=== PATIENT | male | born 1970 | race Caucasian/White ===

== ENCOUNTER 2024-06-16 22:57 | Emergency (ER) | payer MEDICAID, SELFPAY ==
[2024-06-16 23:00] VITALS: BP 144/88; PULSE 87; RESP 18; TEMP 36.4; O2SAT 100
--- NOTE | 2024-06-16 23:15 | PD.EDAMS ---
Altered Mental Status RME/HPI General Chief Complaint: Altered Mental Status Stated Complaint: AMS Time Seen by Provider: 06/16/24 23:15 Arrival date/time: 06/16/24 22:57 Limitations: no limitations RME / HPI RME / HPI narrative: Dr. Lema's Main ED Evaluation: 54-year-old male with history of hypertension, marijuana use in the past coming in by EMS after he was seen drinking sitting on the stoop in front of the house by himself. They gave him the choice to go to alf or come to the hospital because he was drinking in public. Patient with slurred speech and smells of alcohol. Related Data Home Medications ?Medication ?Instructions ?Recorded ?Confirmed atenolol 50 mg tablet 50 mg PO QDAY 09/14/18 12/08/22 Previous Rx's ?Medication ?Instructions ?Recorded acetaminophen 650 mg 650 mg PO Q8H PRN fever or pain 09/23/21 tablet,extended release #30 tabs cyclobenzaprine 10 mg tablet 10 mg PO TID PRN muscle spasm #20 11/12/22 tabs prochlorperazine maleate 10 mg 10 mg PO BID PRN nausea and 04/20/23 tablet (Compazine) vomiting #14 tabs capsaicin 0.1 % topical cream 1 applic topical BID Abdominal 02/12/24 pain #60 grams Allergies Allergy/AdvReac Type Severity Reaction Status Date / Time ibuprofen AdvReac Severe abd pain Verified 02/12/24 15:20 Review of Systems Review of Systems ROS Unobtainable: unobtainable due to medical condition (Alcohol intoxication) Past Medical History Past Medical History NEUROLOGIC: Positive Seizures (hx aneurysm with seizure 2002); Negative Neurological Disorders CARDIAC: Positive Cardiac Disorders and Hypertension; Negative Congestive Heart Failure RESPIRATORY: Negative Chronic Obstructive Pulmonary Disease (COPD) GASTROINTESTINAL: Positive Gastrointestinal Disorders (chronic abd pain), Hepatitis (hep c), Cirrhosis, Pancreatitis (alcohol use, quit 2019) and Hiatal Hernia GENITOURINARY: Negative Genitourinary Disorders or Renal Disease MUSCULOSKELETAL: Negative Musculoskeletal Disorders ENDOCRINE: Negative Endocrine Disorders, Diabetes Mellitus Type 1 or Diabetes Mellitus Type 2 HEMATOLOGIC: Negative Blood Disorders PSYCHO/SOCIAL: Positive Recreational Drug Use (ex meth user) OTHER HISTORY: Positive Blood Transfusions; Negative Autoimmune Disease, Falls, Blood Transfusion Reaction, Anesthesia Reactions, Organ Transplant, MRSA, Clostridium Difficile or Cancer Family History FAMILY HISTORY: Positive Family Cancer Surgical History SURGICAL: Positive Cardiac Surgery, Throat Surgery, Abdominal Surgery and Neurologic Surgery; Negative Endocrine Surgery, Ear Surgery (small bowel obstruction surgery), Nephrectomy, Joint Replacement, Mastectomy, Vasectomy or Organ Transplant Social History SMOKING STATUS: Unknown if ever smoked SUBSTANCE USE: marijuana ED Exam General Limitations: Present no limitations General appearance: Present in no apparent distress and other (awake, has slurred speech, lying on the stretcher, no obvious trauma) Head Head exam: Present atraumatic Eye Eye exam: Present normal appearance, EOMI and other (Trachea is midline); Absent scleral icterus ENT ENT exam: Present normal exam, normal oropharynx, mucous membranes moist and other (no blood coming out of nose or ears) Neck Neck exam: Present normal inspection, full ROM and trachea midline Chest Chest inspection: Present normal inspection and symmetric chest wall rise Respiratory Respiratory exam: Present normal lung sounds bilaterally Cardiovascular Cardiovascular exam: Present regular rate, normal rhythm and normal heart sounds Abdominal Exam Abdominal exam: Present soft and normal bowel sounds Extremities Exam Extremities exam: Present normal inspection and full ROM Back Exam Back exam: Present normal inspection and full ROM Neurological Exam Neurological exam: Present alert, oriented X3 and CN II-XII intact Psychiatric Psychiatric exam: Present normal affect and normal mood Skin Skin exam: Present warm, dry, intact and normal color Course Course Course Narrative: 2329: Patient is attempting to crawl out of bed. Restraints ordered. 0014: Patient is being combative and aggressive towards staff. Medications ordered. OBSERVATION NOTE: The patient was placed in ED observation care at 06/17/24 at 0015 hours. The patient was placed in ED observation care because of pending metabolize to freedom. The patients past medical history, social history, and family history were reviewed. The plan of care will include serial examinations. 0515: Care signed out to Dr. Gould (emergency physician). Past medical, surgical, social and family history reviewed. Vitals and home medications reviewed. Results and treatment plan discussed. They will assume the care of the patient at this time and will follow the patient, pending metabolize to freedom. At this time, observation has ended. Quality Measures none Orders Category Date Time Status 4 HR Behavioral Restraints Q15M Care 06/16/24 23:25 Active 4 HR Behavioral Restraints Q4HR Care 06/17/24 03:[address] cervical spine wo con Stat Exams 06/17/24 00:[address] head/brain wo con Stat Exams 06/17/24 00:21 Taken Alcohol, Blood Medical Stat Lab 06/17/24 00:30 Completed Alcohol, Urine Stat Lab 06/17/24 00:01 Completed CBC Stat Lab 06/17/24 00:30 Completed CMP [Comprehensive Metabolic Panel] Stat Lab 06/17/24 00:30 Completed Drug Screen,Urine Stat Lab 06/17/24 00:01 Completed Mag [Magnesium] Stat Lab 06/17/24 00:30 Completed LORazepam [Ativan Inj] Med 06/17/24 00:22 Discontinued 1 mg IVP X1 ONE LORazepam [Ativan Inj] Med 06/17/24 01:00 Discontinued 1 mg IVP X1 ONE LORazepam [Ativan Inj] Med 06/17/24 04:25 Discontinued 2 mg IVP X1 ONE LORazepam [Ativan] Med 06/17/24 00:14 Discontinued 1 mg SL X1 ONE Vital Signs Vital signs: Vital Signs Temperature 97.6 F 06/16/24 23:00 Pulse Rate 87 06/16/24 23:00 Respiratory Rate 18 06/16/24 23:00 Blood Pressure 144/88 H 06/16/24 23:00 Pulse Oximetry (%) 100 06/16/24 23:00 Oxygen Delivery Method Room Air 06/16/24 23:00 Pulse ox is 100% on room air, which is normal according to my interpretation. Altered Mental Status Patient data External records reviewed:: [facility] previous records (Per chart review, patient was seen here on 02/12/24 for cannabis hyperemesis syndrome.) Clinical information provided by:: law enforcement Social determinants that could affect healthcare access:: alcohol use Patient has the following chronic illnesses:: cirrhosis, HTN How is presenting disease/condition affected by chronic disease/condition?: uneffected by Evaluation data The following diagnostics were reviewed and interpreted by me:: lab results and radiology exam(s) Lab and/or radiology exams considered but not ordered:: none Interpretation Summary: CBC is normal, Sodium is 146, UDS is positive for marijuana, Blood Alcohol is 296.3, according to my interpretation. ------ [employer] Preliminary Report Draft Patient: GREGG PINON [facility]. Record#: [id number] Birthdate: 1970 Age/Sex: 54 / M Location: [facility] Attending Dr: Ordering Physician: Date of Service: Procedure(s): Accession Number(s): cc: ~ CT scan of the cervical spine without intravenous contrast (axial sections with sagittal and coronal reformats) June 17, 2024 0127 hours Clinical History: 54-year-old with EtOH Comparison: None Findings: There is no fracture or subluxation. The prevertebral soft tissues are unremarkable. Impression: No evidence of fracture or subluxation. Report Electronically Signed By: Terrell Metcalf 06/17/2024 2:21:53 AM [EST] [employer] Preliminary Report Draft Patient: GREGG PINON Record#: [id number] Birthdate: 1970 Age/Sex: 54 / M Location: [facility] Attending Dr: Ordering Physician: Date of Service: Procedure(s): Accession Number(s): cc: ~ CT scan of the head without intravenous contrast (axial sections with sagittal and coronal reformats) June 17, 2024 0127 hours Clinical History: 54 yo with ETOH Comparison: None. Findings: There is no evidence of intracranial hemorrhage, mass effect or midline shift. There is mild volume loss. S/p left craniotomy. No acute fractures. Vascular clip lateral to the left of the sella. The mastoid air cells and the visualized paranasal sinuses are clear. Impression: No evidence of intracranial hemorrhage, midline shift or calvarial fracture Mild volume loss. Report Electronically Signed By: Terrell Metcalf 06/17/2024 2:26:32 AM [EST] Medications / Prescriptions Medications or Prescriptions considered but not ordered:: none Medication administrations:: Medication Administration History Discontinued Medications Lorazepam (Lorazepam 0.5 Mg Tablet) 1 mg SL X1 ONE Stop: 06/17/24 00:15 Last Admin: 06/17/24 00:24 Dose: Not Given Documented By: SHO Non-Admin Reason: Discontinued Lorazepam (Lorazepam 2 Mg/Ml Vial) 1 mg IVP X1 ONE Stop: 06/17/24 00:23 Last Admin: 06/17/24 00:26 Dose: 1 mg Documented By: SHO Lorazepam (Lorazepam 2 Mg/Ml Vial) 1 mg IVP X1 ONE Stop: 06/17/24 01:01 Last Admin: 06/17/24 01:07 Dose: 1 mg Documented By: SHO Lorazepam (Lorazepam 2 Mg/Ml Vial) 2 mg IVP X1 ONE Stop: 06/17/24 04:26 Last Admin: 06/17/24 04:28 Dose: 2 mg Documented By: SHO none Consultations Consultation(s) initiated? (list below): No Diagnosis Differential diagnosis altered mental status: alcoholic intoxication, altered mental status, hypoglycemia, hyponatremia and other (Bouts of arachnoid hemorrhage or subdural. No obvious trauma noted., Other drug use) Most likely diagnosis given after review of the tests above:: see below Admission Indicated Admission indicated?: not indicated Admission Request Was there a request for admission?: No Disposition Plan Disposition Plan: other (specify) (Signed out to Dr. Gould at 0515 pending metabolize to freedom.) Discharge Plan Plan Patient condition on transfer: Stable Prescriptions/Referrals Prescriptions/Med Rec: No Action acetaminophen 650 mg tablet extended release 650 mg PO Q8H PRN (Reason: fever or pain) Qty: 30 0RF Rx Instructions: swallow whole; do not chew/break/dissolve/open atenolol 50 mg Tablet 50 mg PO QDAY prochlorperazine maleate [Compazine] 10 mg tablet 10 mg PO BID PRN (Reason: nausea and vomiting) Qty: 14 0RF capsaicin 0.1 % cream 1 applic topical BID Qty: 60 0RF Rx Instructions: do not wash area for at least 30 min after application cyclobenzaprine 10 mg tablet 10 mg PO TID PRN (Reason: muscle spasm) Qty: 20 0RF Problem List Clinical Impression: AMS (altered mental status), Alcohol abuse Patient/Caregiver Discharge Instructions Print Language: Estonian
[2024-06-16 23:17] VITALS: PULSE 84; RESP 18; O2SAT 95
[2024-06-16 23:24] VITALS: BMI 22.3
[2024-06-16 23:55] VITALS: PULSE 74
--- NOTE | 2024-06-16 23:55 | PC.NURSE ---
Pt biba intoxicated. Per ems pt was found on the ground out in public intoxicated. pt presents combative cussing at staff and being uncooperative. pt placed in restraints per md order. placed on cardiac monitoring.
[2024-06-17] VITALS (14 sets, daily range): BP systolic 112–180; BP diastolic 74–118; PULSE 66–101; RESP 18–27; TEMP 35.9–37.1; O2SAT 95–100
--- NOTE | 2024-06-17 00:21 | XR_ITS ---
Examination: CT brain head without contrast. 2-D sagittal coronal reconstructions Date and time of exam:June 17, 2024 0127 hours Comparison March 15, 2020 INDICATIONS: Patient found down unconscious today CTDI: vol (mGy):48.9 DLP: (mGycm):922 Technique: Multiple CT axial sections of the brain have been obtained, 5 mm slice thickness. Contrast has not been administered. 2-D sagittal, coronal reconstructions have been obtained Low dose protocols were performed. One or more of the following dose reduction techniques were used; automated exposure control, adjustment of the mA and/or KV according to patient size, use of iterative reconstruction technique. Findings: No significant ventricular enlargement. Intra-axial or extra-axial hemorrhage density is not seen. No mass effect or midline shift Basal cisterns are not remarkable. Fourth ventricle is midline. Left frontal craniotomy defect Left parasellar aneurysm clip Impression: Patient motion degrades scan image quality Negative for acute hemorrhage, mass effect or midline shift
--- NOTE | 2024-06-17 00:22 | XR_ITS ---
Examination: CT cervical spine without contrast 2-D sagittal reconstructions 2-D coronal reconstructions 3-D reconstructions. Exam date and time:June 17, 2024 0127 hours INDICATIONS: Patient found down unconscious today, with head and neck pain CTDI:vol (mGy) 7.55 DLP: (mGycm) 152 Technique: Multiple 2 mm axial sections of the cervical spine have been obtained. The coronal and sagittal reconstructions have been obtained. 3-D reconstructions have been obtained. Low dose protocols were performed. One or more of the following dose reduction techniques were used; automated exposure control, adjustment of the mA and/or KV according to patient size, use of iterative reconstruction technique. Findings: Axial sections demonstrate intact base of the skull. C1 exhibit satisfactory relationship to the odontoid. No acute cervical vertebral body fracture seen. Alignment posterior spinous processes satisfactory. Impression: No acute cervical fracture.
[2024-06-17] MEDS: LORazepam 2 MG/ML VIAL 1 MG IVP ×2 (00:26→01:07)
[2024-06-17 00:28] LABS: Amphetamine/Methamp Scrn,U Negative (Negative); Barbiturate Screen,Urine Negative (Negative); Benzodiazepines Screen,Urine Positive (Negative); Benzoylecgonine Screen, Ur Negative (Negative); Fentanyl Screen,Urine Negative (Negative); Opiate Screen,Urine Positive (Negative); THC Screen,Urine Positive (Negative)
[2024-06-17 00:43] LABS: Alcohol, Urine Positive (Negative)
[2024-06-17 00:45] LABS: Basophils % (Auto) 1 % (0-2.5); Eosinophils % (Auto) 0 % (0-10); Hemoglobin 13.8 g/dL (13.5-16.0); Immature Granulocytes % (Auto) 0 % (0-0); Immature Granulocytes Auto 0.03 Thou/mm3 (0.00-0.00); Lymphocytes % (Auto) 41 % (10-50); Mean Corpuscular HGB Conc 33.7 g/dl (31.0-37.0); Mean Corpuscular Hemoglobin 29.7 pg (25.0-35.0); Mean Corpuscular Volume 88 fL (80-100); Monocytes # (Auto) 0.8 Thou/mm3 (0.0-0.8); Monocytes % (Auto) 11 % (0-12); Neutrophils # (Auto) 3.4 Thou/mm3 (1.8-7.7); Neutrophils % (Auto) 47 % (37-80); Nucleated Red Blood Cell % 0 /100 WBC (0); Platelet Count 188 Thou/mm3 (140-440); RDW Standard Deviation 45.4 fL (35.1-43.9); Red Blood Count 4.64 Miln/mm3 (4.50-5.90); White Blood Count 7.3 Thou/mm3 (3.8-10.6)
[2024-06-17 01:05] LABS: Alanine Aminotransferase 77 U/L (10-49); Albumin, Serum 5.2 gm/dL (3.5-5.0); Albumin/Globulin Ratio 1.9 (1.2-2.2); Alcohol, Blood Medical 296.3 mg/dL (0-10.0); Alkaline Phosphatase 112 U/L (46-116); Anion Gap 11 (7-16); Aspartate Amino Transferase 69 U/L (0-34); BUN/Creatinine Ratio 12 Ratio (12-20); Bilirubin,Total 0.5 mg/dL (0.3-1.2); Blood Urea Nitrogen 13 mg/dL (9-23); Calcium 10.3 mg/dL (8.3-10.6); Calcium (Corrected) 10.3 mg/dL (8.5-10.1); Carbon Dioxide 24.4 mMol/L (20.0-31.0); Chloride 111 mMol/L (98-107); Creatinine (Component) 1.1 mg/dL (0.6-1.3); Estimated Creatinine Clearance 62.5 mL/min (>60); Globulin 2.8 gm/dL (2.3-3.5); Glucose 87 mg/dL (74-106); Magnesium 2.5 mg/dL (1.6-2.6); Osmolality,Calculated 289 (275-295); Potassium 4.1 mMol/L (3.4-5.1); Sodium 146 mMol/L (136-145); eGFR > 60 See Note
--- NOTE | 2024-06-17 02:22 | PRELIM_ITS ---
CT scan of the cervical spine without intravenous contrast (axial sections with sagittal and coronal reformats) June 17, 2024 0127 hours Clinical History: 54-year-old with EtOH Comparison: NoneFindin gs:There is no fracture or subluxation. The prevertebral soft tissues are unremarkable.Impression:No evidence of fracture or subluxation. Report Electronically Signed By: Terrell Metcalf 06/17/2024 2:21 :53 AM [EST]
--- NOTE | 2024-06-17 02:26 | PRELIM_ITS ---
CT scan of the head without intravenous contrast (axial sections with sagittal and coronal reformats) June 17, 2024 0127 hoursClinical History: 54 yo with ETOHComparison: None.Findings:There is no ev idence of intracranial hemorrhage, mass effect or midline shift. There is mild volume loss. S/p left craniotomy. No acute fractures.Vascular clip lateral to the left of the sella.The mastoid air cells a nd the visualized paranasal sinuses are clear.Impression:No evidence of intracranial hemorrhage, midl ine shift or calvarial fractureMild volume loss. Report Electronically Signed By: Terrell Metcalf 2:26:32 AM [EST]
--- NOTE | 2024-06-17 04:19 | PC.NURSE ---
Pt awake, and continues to be uncooperative. Shouting, being combative, attempting to remove restraints, cussing at nursing staff. Pt thrashing around in [facility]. Pt continues to remove all vital sign monitoring. Educations reenforce as to why pt is here in the er, and why he is restrained. Pt refuses to follow directions and comply with treatment options. Md Snell informed. New verbal med orders received by .
[2024-06-17] MEDS: LORazepam 2 MG/ML VIAL IVP (04:28)
--- NOTE | 2024-06-17 08:19 | PD.EDADDENDU ---
Emergency Room Addendum <Oswaldo Gould MD - Last Filed: 06/17/24 21:14> Addendum Narrative: Patient was signed out at 05 [address] Lema who evidently was found intoxicated outside his home as ambulance team was driving by. They evaluated him and brought him here for further evaluation. Patient's charts reveal this patient's had acute pancreatitis in the past alcohol intoxication use of drugs and refer to the past medical history for more details. Today there was no evidence of any trauma or injury was just obtunded and evidently after he was here for little bit became a little more rambunctious and yelling and screaming and asking for pain medicine. Vital signs reveal hypertension white count 7.3 hemoglobin 13.8 sodium 146 potassium 4.1 chloride 111 CO2 24.4 BUN 13 creatinine 1.1 blood alcohol level was 0.296 and opiates. Transaminases are slightly elevated 69-77 a total bilirubin is 0.5. I will extend the workup as the patient has had pancreatitis before no lipase was ordered also get a CT as he is complaining of severe pain. Also patient is been quite abusive yelling cussing and threatening enough that the staff called the police who have come down and are talking to the patient as we speak. I will get the patient benefit down given some morphine. I have gone in the room several times and with the prec[place] police sergeant there explained organ to give him some pain medicine him some fluids working up further including lipase and CT of the abdomen and even while and explain his he is cussing inpatient and not waiting even here by sentences. I reassured him we would try to help him with that he would need to cooperate. Also he will note the patient has been quite combative and agitated required 4 doses of Ativan since he has been here. Now that he has not complained of abdominal pain which was not a complaint earlier medical workup for that is ordered and pending at 0840 hrs. Should be noted the CT scan came back negative other than some gastritis and at 1730 hrs. patient's walking standing eating and a third lactic acid is ordered and pending but he does not want to wait and wants to sign out AMA. Charge nurse was informed of his intentions and he fully understands the risks even though he is cussing and yelling interrupting everything I tried to explain. And this is been the way it has been for almost the whole shift with him. She be noted this patient required great patient's by the staff as he is been yelling cussing almost throughout the shift demanding pain medicine stating he never drank alcohol when he is intoxicated but the CT scan came back negative for any acute he probably has gastritis as a source of his pain and he does not have pancreatitis at least his lipase was and when told he needed to get a third lactic acid to make sure that it is going down he refused stated he wanted to sign out AMA he was ambulatory and appeared to be safe on his feet and was going to walk and not drive. Patient departed the ER and before he left he was advised to follow-up with his doctors which he promptly said a very unkind word. She noted the police were called earlier and he was abusive to them in front of me and they were called because he was threatening staff. RADIOLOGY Procedure(s): CT head/brain wo con Accession Number(s): [id number] cc: Julien Romo MD; NO PRIMARY/FAMILY,PHYSICIAN; Anay Lema MD~ Examination: CT brain head without contrast. 2-D sagittal coronal reconstructions Date and time of exam:June 17, 2024 0127 hours Comparison March 15, 2020 INDICATIONS: Patient found down unconscious today CTDI: vol (mGy):48.9 DLP: (mGycm):922 Technique: Multiple CT axial sections of the brain have been obtained, 5 mm slice thickness. Contrast has not been administered. 2-D sagittal, coronal reconstructions have been obtained Low dose protocols were performed. One or more of the following dose reduction techniques were used; automated exposure control, adjustment of the mA and/or KV according to patient size, use of iterative reconstruction technique. Findings: No significant ventricular enlargement. Intra-axial or extra-axial hemorrhage density is not seen. No mass effect or midline shift Basal cisterns are not remarkable. Fourth ventricle is midline. Left frontal craniotomy defect Left parasellar aneurysm clip Impression: Patient motion degrades scan image quality Negative for acute hemorrhage, mass effect or midline shift Dictated By: Julien Romo MD Procedure(s): CT cervical spine wo con Accession Number(s): [id number] cc: Julien Romo MD; NO PRIMARY/FAMILY,PHYSICIAN; Anay Lema MD~ Examination: CT cervical spine without contrast 2-D sagittal reconstructions 2-D coronal reconstructions 3-D reconstructions. Exam date and time:June 17, 2024 0127 hours INDICATIONS: Patient found down unconscious today, with head and neck pain CTDI:vol (mGy) 7.55 DLP: (mGycm) 152 Technique: Multiple 2 mm axial sections of the cervical spine have been obtained. The coronal and sagittal reconstructions have been obtained. 3-D reconstructions have been obtained. Low dose protocols were performed. One or more of the following dose reduction techniques were used; automated exposure control, adjustment of the mA and/or KV according to patient size, use of iterative reconstruction technique. Findings: Axial sections demonstrate intact base of the skull. C1 exhibit satisfactory relationship to the odontoid. No acute cervical vertebral body fracture seen. Alignment posterior spinous processes satisfactory. Impression: No acute cervical fracture. Dictated By: Julien Romo MD Procedure(s): CT abdomen pelvis w con Accession Number(s): [id number] cc: Oswaldo Gould MD; Julien Romo MD; NO PRIMARY/FAMILY,PHYSICIAN~ Examination: CT abdomen with intravenous contrast CT pelvis with intravenous contrast 2-D coronal reconstructions 2-D sagittal reconstructions Comparison August 10, 2023 Date and time of exam:June 17, 2024 1219 hrs. Indications: Abdominal pain this week and today, alcohol abuse history CTDI: vol (mGy) 5.4 DLP: (mGycm) 255 Technique: Multiple axial sections of the abdomen and pelvis have been obtained. 64 slice high-resolution scanner used. 3 mm axial sections have been obtained, post intravenous injection 60 cc [id number] 2-D sagittal, coronal reconstructions obtained. Low dose protocols were performed. One or more of the following dose reduction techniques were used; automated exposure control, adjustment of the mA and/or KV according to patient size, use of iterative reconstruction technique. Findings: Large retrocardiac gastric hernia Fatty liver Splenic calcifications No definite gallstones No common bile duct stones Mild dilatation pancreatic duct 4 mm No peripancreatic edema Gastric mucosa appears thickened No adrenal mass No renal or ureteral calculi Mild diffuse wall thickening and hyperemia involving the colon Normal appendix No bowel obstruction Distended urinary bladder No prostatomegaly Intact osseous structures Impression: Suspicious for gastritis No renal or ureteral calculi Nonspecific mild diffuse colitis pattern Dictated By: Julien Romo MD <Soco Guzman - Last Filed: 06/17/24 17:23> Addendum Narrative: Patient was signed out at 05 [address] Lema who evidently was found intoxicated outside his home as ambulance team was driving by. They evaluated him and brought him here for further evaluation. Patient's charts reveal this patient's had acute pancreatitis in the past alcohol intoxication use of drugs and refer to the past medical history for more details. Today there was no evidence of any trauma or injury was just obtunded and evidently after he was here for little bit became a little more rambunctious and yelling and screaming and asking for pain medicine. Vital signs reveal hypertension white count 7.3 hemoglobin 13.8 sodium 146 potassium 4.1 chloride 111 CO2 24.4 BUN 13 creatinine 1.1 blood alcohol level was 0.296 and opiates. Transaminases are slightly elevated 69-77 a total bilirubin is 0.5. I will extend the workup as the patient has had pancreatitis before no lipase was ordered also get a CT as he is complaining of severe pain. Also patient is been quite abusive yelling cussing and threatening enough that the staff called the police who have come down and are talking to the patient as we speak. I will get the patient benefit down given some morphine. I have gone in the room several times and with the prec[place] police sergeant there explained organ to give him some pain medicine him some fluids working up further including lipase and CT of the abdomen and even while and explain his he is cussing inpatient and not waiting even here by sentences. I reassured him we would try to help him with that he would need to cooperate. Also he will note the patient has been quite combative and agitated required 4 doses of Ativan since he has been here. Now that he has not complained of abdominal pain which was not a complaint earlier medical workup for that is ordered and pending at 0840 hrs. RADIOLOGY Procedure(s): CT head/brain [facility] Accession Number(s): [id number] cc: Julien Romo MD; NO PRIMARY/FAMILY,PHYSICIAN; Anay Lema MD~ Examination: CT brain head without contrast. 2-D sagittal coronal reconstructions Date and time of exam:June 17, 2024 0127 hours Comparison March 15, 2020 INDICATIONS: Patient found down unconscious today CTDI: vol (mGy):48.9 DLP: (mGycm):922 Technique: Multiple CT axial sections of the brain have been obtained, 5 mm slice thickness. Contrast has not been administered. 2-D sagittal, coronal reconstructions have been obtained Low dose protocols were performed. One or more of the following dose reduction techniques were used; automated exposure control, adjustment of the mA and/or KV according to patient size, use of iterative reconstruction technique. Findings: No significant ventricular enlargement. Intra-axial or extra-axial hemorrhage density is not seen. No mass effect or midline shift Basal cisterns are not remarkable. Fourth ventricle is midline. Left frontal craniotomy defect Left parasellar aneurysm clip Impression: Patient motion degrades scan image quality Negative for acute hemorrhage, mass effect or midline shift Dictated By: Julien Romo MD Procedure(s): CT cervical spine wo con Accession Number(s): [id number] cc: Julien Romo MD; NO PRIMARY/FAMILY,PHYSICIAN; Anay Lema MD~ Examination: CT cervical spine without contrast 2-D sagittal reconstructions 2-D coronal reconstructions 3-D reconstructions. Exam date and time:June 17, 2024 0127 hours INDICATIONS: Patient found down unconscious today, with head and neck pain CTDI:vol (mGy) 7.55 DLP: (mGycm) 152 Technique: Multiple 2 mm axial sections of the cervical spine have been obtained. The coronal and sagittal reconstructions have been obtained. 3-D reconstructions have been obtained. Low dose protocols were performed. One or more of the following dose reduction techniques were used; automated exposure control, adjustment of the mA and/or KV according to patient size, use of iterative reconstruction technique. Findings: Axial sections demonstrate intact base of the skull. C1 exhibit satisfactory relationship to the odontoid. No acute cervical vertebral body fracture seen. Alignment posterior spinous processes satisfactory. Impression: No acute cervical fracture. Dictated By: Julien Romo MD Procedure(s): CT abdomen pelvis w con Accession Number(s): [id number] cc: Oswaldo Gould MD; Julien Romo MD; NO PRIMARY/FAMILY,PHYSICIAN~ Examination: CT abdomen with intravenous contrast CT pelvis with intravenous contrast 2-D coronal reconstructions 2-D sagittal reconstructions Comparison August 10, 2023 Date and time of exam:June 17, 2024 1219 hrs. Indications: Abdominal pain this week and today, alcohol abuse history CTDI: vol (mGy) 5.4 DLP: (mGycm) 255 Technique: Multiple axial sections of the abdomen and pelvis have been obtained. 64 slice high-resolution scanner used. 3 mm axial sections have been obtained, post intravenous injection 60 cc [id number] 2-D sagittal, coronal reconstructions obtained. Low dose protocols were performed. One or more of the following dose reduction techniques were used; automated exposure control, adjustment of the mA and/or KV according to patient size, use of iterative reconstruction technique. Findings: Large retrocardiac gastric hernia Fatty liver Splenic calcifications No definite gallstones No common bile duct stones Mild dilatation pancreatic duct 4 mm No peripancreatic edema Gastric mucosa appears thickened No adrenal mass No renal or ureteral calculi Mild diffuse wall thickening and hyperemia involving the colon Normal appendix No bowel obstruction Distended urinary bladder No prostatomegaly Intact osseous structures Impression: Suspicious for gastritis No renal or ureteral calculi Nonspecific mild diffuse colitis pattern Dictated By: Julien Romo MD
--- NOTE | 2024-06-17 08:22 | PC.NURSE ---
Officer Franc and Officer Michael No from [place] [employer] here to talk to pt., pt. being belligerent and cussing. Pt. is destructive and removed his restraints. Pt. cussing at staff and Police.
[2024-06-17] MEDS: ONDANSETRON INJ 2 MG/ML INJ 2 ML 4 MG IV (11:16)
[2024-06-17] MEDS: SODIUM CHLORIDE 0.9% 1000 ML 1,000 ML 150 ML IV (11:17)
[2024-06-17 11:19] LABS: Base Excess, Venous -3 (-3-3); O2 Saturation, Venous 95 % (96-97); PCO2, Venous 28 mmHg (36-56); PO2, Venous 67 mmHg (15-58); pH, Venous 7.45 (7.33-7.66)
[2024-06-17 11:20] LABS: Lactate (Lactic Acid) 3.4 mMol/L (0.4-2.0)
[2024-06-17] MEDS: MORPHINE SULF INJ 10 MG/ML VIAL 4 MG IVP ×2 (11:22→14:05)
[2024-06-17] MEDS: SODIUM CHLORIDE 0.9% 1000 ML 1,000 ML 999 ML IV ×2 (11:23→13:19)
[2024-06-17 11:43] LABS: Lipase 40 U/L (12-53)
--- NOTE | 2024-06-17 12:34 | PC.NURSE ---
Pt. back from CT, pt.'s daughter Macey called [phone], pt. states it's ok to auto hiker her information.
--- NOTE | 2024-06-17 12:35 | PC.NURSE ---
Pt. has skin tears to left mid forearm, no bleeding or drainage noted from skin tears.
--- NOTE | 2024-06-17 13:10 | PC.NURSE ---
Pt.'s Mother is bedside.
--- NOTE | 2024-06-17 13:46 | PRELIM_ITS ---
CT scan of the abdomen and pelvis with intravenous contrast (axial sections with sagittal and coronal reformats) June 17, 2024 1219 hoursClinical History: Abdominal pain alcohol abuseComparison: No p rior study is available for comparison. Findings:The lung bases are clear.There is fatty infiltration of the liver. A calcific density is seen in the spleen, likely representing an old calcified granulo ma.The gallbladder, pancreas, kidneys and adrenals are unremarkable.No evidence of bowel obstruction. A moderate amount of fecal material is present in the colon. The appendix is within normal limits (i mages 66/122). There is no mesenteric or retroperitoneal adenopathy.The urinary bladder is unremarkab le. There is no free fluid or free air.The osseous structures are unremarkable.Impression:No evidence of bowel obstruction, free air or abscess. Report Electronically Signed By: Malena Nassar 06/17/2024 1 :45:55 PM [EST]
[2024-06-17 14:14] LABS: Reflex Lactate? Y
[2024-06-17 14:41] LABS: Lactic Acid, 3 HR 3.3 mMol/L (0.4-2.0)
--- NOTE | 2024-06-17 17:33 | PC.NURSE ---
Addendum entered by Humaira Rodriguez RN 06/17/24 17:37: 20g ivl to left forearm, dc'd with cath intact, pressure dressing applied. Original Note: Patient signed out AMA, refused Lactic acid repeat draw, patient states I'm tired of this place, I want to get the fuck out of here , risks explained to patient for leaving ER AMA, including possible , patient verbalizes understanding, Dr. Gould is aware and spoke with patient, AMA for signed and placed on chart.
== END 2024-06-17 17:38 | disposition left against medical advice (07) ==
PROVIDERS: Emergency Medicine; Emergency Provider Emergency Medicine
DX: R41.82 Altered mental status, unspecified (principal); F10.120 Alcohol abuse with intoxication, uncomplicated; I10 Essential (primary) hypertension; M54.2 Cervicalgia
CPT/HCPCS: 36415; 70450; 72125; 74177; 80053; 80307; 80320; 82803; 83605; 83690; 83735; 85025; 87040; 99285; A4649; J2060; J2270; J2405; J7030; Q9967; G0480

== ENCOUNTER 2024-08-05 11:41 | Emergency (ER) | payer MEDICAID, SELFPAY ==
[2024-08-05 12:01] VITALS: PULSE 84; RESP 20; O2SAT 99
[2024-08-05 12:20] VITALS: BP 133/93; PULSE 88; RESP 18; TEMP 36.7; O2SAT 98; BMI 20.5
--- NOTE | 2024-08-05 12:26 | PD.EDRME ---
Rapid Medical Screening Exam RME Arrival date/time: 08/05/24 11:41 This is a 54-year-old male that comes in with complaints of abdominal pain, nausea, vomiting, and and not been able to keep any food down for the past few days. Patient has a history of high blood pressure. I have greeted and performed a focused initial assessment of this patient. Initial appropriate labs ordered at this time. A comprehensive ED assessment and evaluation of the patient and analysis of all test and completion of medical decision making process will be conducted by additional ED provider. Time Seen by Provider: 08/05/24 12:18 Vital signs: Vital Signs Temperature 98.1 F 08/05/24 12:20 Pulse Rate 88 08/05/24 12:20 Respiratory Rate 18 08/05/24 12:20 Blood Pressure 133/93 H 08/05/24 12:20 Pulse Oximetry (%) 98 08/05/24 12:20 Oxygen Delivery Method Room Air 08/05/24 12:20
[2024-08-05] MEDS: ONDANSETRON ODT 4 MG TABRAP PO (12:40)
[2024-08-05 13:04] LABS: Basophils % (Auto) 0 % (0-2.5); Eosinophils % (Auto) 0 % (0-10); Hematocrit 47.2 % (41.0-53.0); Hemoglobin 16.6 g/dL (13.5-16.0); Immature Granulocytes % (Auto) 0 % (0-0); Immature Granulocytes Auto 0.05 Thou/mm3 (0.00-0.00); Lymphocytes # (Auto) 3.5 Thou/mm3 (1.0-4.8); Lymphocytes % (Auto) 22 % (10-50); Mean Corpuscular HGB Conc 35.2 g/dl (31.0-37.0); Mean Corpuscular Hemoglobin 30.4 pg (25.0-35.0); Mean Corpuscular Volume 86 fL (80-100); Monocytes # (Auto) 1.7 Thou/mm3 (0.0-0.8); Monocytes % (Auto) 11 % (0-12); Neutrophils # (Auto) 10.7 Thou/mm3 (1.8-7.7); Neutrophils % (Auto) 67 % (37-80); Nucleated Red Blood Cell % 0 /100 WBC (0); Platelet Count 192 Thou/mm3 (140-440); RDW Standard Deviation 41.2 fL (35.1-43.9); Red Blood Count 5.46 Miln/mm3 (4.50-5.90)
[2024-08-05 13:16] LABS: Alanine Aminotransferase 60 U/L (10-49); Albumin, Serum 5.5 gm/dL (3.5-5.0); Albumin/Globulin Ratio 1.6 (1.2-2.2); Alkaline Phosphatase 114 U/L (46-116); Anion Gap 9 (7-16); Aspartate Amino Transferase 65 U/L (0-34); BUN/Creatinine Ratio 29 Ratio (12-20); Bilirubin,Total 1.8 mg/dL (0.3-1.2); Blood Urea Nitrogen 44 mg/dL (9-23); Calcium 10.2 mg/dL (8.3-10.6); Calcium (Corrected) 10.2 mg/dL (8.5-10.1); Carbon Dioxide 25.9 mMol/L (20.0-31.0); Chloride 94 mMol/L (98-107); Creatinine (Component) 1.5 mg/dL (0.6-1.3); Estimated Creatinine Clearance 42.3 mL/min (>60); Globulin 3.5 gm/dL (2.3-3.5); Glucose 127 mg/dL (74-106); Lipase 45 U/L (12-53); Osmolality,Calculated 272 (275-295); Potassium 4.9 mMol/L (3.4-5.1); Sodium 129 mMol/L (136-145); eGFR 54 See Note
[2024-08-05 13:53] LABS: Collection Type, Urine Voided; Squamous Epithelial Cell,Urine 0 /hpf (0-5)
[2024-08-05 13:58] LABS: Bilirubin,Urine Negative (Negative); Blood,Urine Negative (Negative); Clarity,Urine Clear (Clear/Hazy); Color,Urine Yellow (Lt Yel-Yel); Culture Indicated,Urine Not Indicated; Glucose, Urine Negative (Negative); Hyaline Casts,Urine < 1 /hpf (0-1); Ketones,Urine Negative (Negative); Leukocyte Esterase,Urine Negative (Negative); Nitrite,Urine Negative (Negative); Protein,Urine Trace (Neg - Trace); RBC,Urine < 1 /hpf (0-3); Specific Gravity,Urine 1.026 (1.001-1.035); Urobilinogen,Urine Negative mg/dL (0.0-1.0); WBC,Urine < 1 /hpf (0-5)
[2024-08-05 14:22] LABS: Amphetamine/Methamp Scrn,U Negative (Negative); Barbiturate Screen,Urine Negative (Negative); Benzodiazepines Screen,Urine Negative (Negative); Benzoylecgonine Screen, Ur Negative (Negative); Fentanyl Screen,Urine Negative (Negative); Opiate Screen,Urine Positive (Negative); THC Screen,Urine Positive (Negative)
--- NOTE | 2024-08-05 16:21 | XR_ITS ---
Examination: Abdomen sonogram, Limited Date and time of exam: Bradycardia today at 1702 hrs. Indications: Epigastric pain nausea vomiting beginning 3 days ago Technique: Real-time carreon scale transabdominal sonographic images of the upper abdomen obtained. Findings: Gallbladder sludge, negative for cholelithiasis, negative for cholecystitis Common bile duct 0.3 cm Pancreatic head 2.6 cm Liver 12.8 cm fatty infiltration Normal hepatopedal portal venous flow Patent IVC Impression: Gallbladder sludge, negative for cholelithiasis, negative for cholecystitis
--- NOTE | 2024-08-05 16:22 | EDNOTE_ITS ---
ED Abdominal Pain RME/HPI General Chief Complaint: Abdominal Pain Stated complaint: ABDOMINAL PAIN Time seen by provider: 08/05/24 12:18 Arrival date/time: 08/05/24 11:41 RME / HPI RME / HPI narrative: 54-year-old male patient with significant history of hiatal hernia, hypertension, came in for evaluation regarding epigastric pain. Is been having epigastric pain for the last 3 to 4 days, associated with vomiting, cannot take anything down due to vomiting. Patient denies any fever. Denies any diarrhea constipation or other complaints. Patient told me that he had hiatal hernia repair done in the past. Related Data Home Medications ?Medication ?Instructions ?Recorded ?Confirmed atenolol 50 mg tablet 50 mg PO QDAY 09/14/1812/08 Previous Rx's ?Medication ?Instructions ?Recorded acetaminophen 650 mg 650 mg PO Q8H PRN fever or p ain 09/23/21 tablet,extended release #30 tabs cyclobenzaprine 10 mg tablet 10 mg PO TID PRN muscle s pasm #20 11/12/22 tabs prochlorperazine maleate 10 mg 10 mg PO BID PRN nausea and 04/20/23 tablet (Compazine) vomiting #14 tabs capsaicin 0.1 % topical cream 1 applic topical BID Abd ominal 02/12/24 pain #60 grams acetaminophen 300 mg-codeine 30 mg 1 tab PO Q8H PRN pa in #20 tabs 08/05/24 tablet atenolol 50 mg tablet 50 mg PO QDAY #30 tabs 08/05 metoclopramide HCl 10 mg tablet 10 mg PO Q6H PRN nause a and 08/05/24 (Reglan) vomiting #30 tabs pantoprazole 40 mg tablet,delayed 40 mg PO QDAY #20 ta bs 08/05/24 release (Protonix) Allergies Allergy/AdvReac Type Severity Reaction Status Date / Time ibuprofen AdvReac Severe abd pain Verified 08/05/24 12:03 Review of Systems Review of Systems Narrative Review of Systems: Review of system reviewed and within normal limits except mentioned in HPI ED Exam Narrative Physical exam: VITAL SIGNS: Reviewed. GENERAL APPEARANCE: Alert and interactive, follows commands, no acute distress, HEAD AND FACE: Non-traumatic. ENT: PERRL, pink conjunctivitis, eyelid no trauma, Mucous membrane moist. NECK: Supple, nontender, no nuchal rigidity. CHEST: No tenderness, no crepitus, no paradoxical movement, no retractions. LUNGS: Clear, well ventilated, symmetric, no rales, no wheezing, no ronchi, no stridor, good breath sounds bilaterally. HEART: Regular rate, regular rhythm, no murmur, no gallops. ABDOMEN: Soft, positive bowel sounds, nondistended, no guarding, epigastric tenderness, no rebound, no masses, RECTAL: Deferred. GENITAL: Deferred. NEUROLOGICAL: Gross motor function intact sensory function intact, Appropriate for age. MUSCULOSKELETAL: low back nontender, full range of motion. EXTREMITIES: Nontender, full range of motion. SKIN: Color pink, dry, no rash, no lacerations, no abrasions, no contusions. LYMPHATICS: Deferred. Course Quality Measures none Orders Category Date Time Status US gall bladder Stat Exams 08/05/24 16:21 Completed CBC Stat Lab 08/05/24 12:46 Completed Comprehensive Metabolic Panel Stat Lab 08/05/24 12:46 Completed Drug Screen,Urine Stat Lab 08/05/24 12:56 Completed Lipase Stat Lab 08/05/24 12:46 Completed Urinalysis, C/S if Indicated Stat Lab 08/05/24 12:55 Completed Famotidine Inj [Pepcid Inj] Med 08/05/24 16:21 Discontinued 20 mg IVP X1 ONE Metoclopramide Inj [Reglan Inj] Med 08/05/24 16:21 Discontinued 10 mg IVP X1 ONE Morphine Inj Med 08/05/24 16:21 Discontinued 4 mg IVP X1 ONE Ondansetron Odt [Zofran Odt] Med 08/05/24 12:26 Discontinued 4 mg PO X1 ONE Vital Signs Vital signs: Vital Signs Temperature 98.1 F 08/05/24 12:20 Pulse Rate 88 08/05/24 12:20 Respiratory Rate 18 08/05/24 12:20 Blood Pressure 133/93 H 08/05/24 12:20 Pulse Oximetry (%) 98 08/05/24 12:20 Oxygen Delivery Method Room Air 08/05/24 12:20 Abdominal Pain MDM MDM Narrative MDM Narrative:: 54-year-old male patient with significant history of hiatal hernia, hypertension, came in for evaluation regarding epigastric pain. Is been having epigastric pain for the last 3 to 4 days, associated with vomiting, cannot take anything down due to vomiting. Patient denies any fever. Denies any diarrhea constipation or other complaints. Patient told me that he had hiatal hernia repair done in the past. Laboratory workup is significant for leukocytosis of 16,000. LFTs is slightly elevated 1.8 total bili, AST of 65, ALT of 60. Creatinine was also noted to be 1.5 BUN 44. Ultrasound of the gallbladder showed gallbladder sludge with no sign of acute cholecystitis. Patient received famotidine IV, Reglan IV, morphine and Zofran with complete resolution of symptoms. Patient is requesting prescription for atenolol. Patient was advised to follow-up with PCP and for referral to general surgeon. Patient appears nontoxic and hemodynamically stable. Patient discharged home and instructed to follow-up with primary care provider in 24 to 48 hours. Instructed to return to the emergency department immediately if worsening of symptoms Patient data External records reviewed:: None Clinical information provided by:: patient Social determinants that could affect healthcare access:: none Patient has the following chronic illnesses:: Hypertension How is presenting disease/condition affected by chronic disease/condition?: exacerbated by Evaluation data The following diagnostics were reviewed and interpreted by me:: lab results and radiology exam(s) Lab and/or radiology exams considered but not ordered:: None Interpretation Summary: See results in [facility] Medications / Prescriptions Medications or Prescriptions considered but not ordered:: None Medication administrations:: Medication Administration History Discontinued Medications Famotidine (Famotidine Inj 10 Mg/Ml Vial 2 Ml) 20 mg IVP X1 ONE Stop: 08/05/24 16:22 Last Admin: 08/05/24 17:21 Dose: 20 mg Documented By: VG Metoclopramide HCl (Metoclopramide Inj 5 Mg/Ml Vial 2 Ml) 10 mg IVP X1 ONE; Protocol Stop: 08/05/24 16:22 Last Admin: 08/05/24 17:15 Dose: 10 mg Documented By: VG Morphine Sulfate (Morphine Sulf Inj 10 Mg/Ml Vial) 4 mg IVP X1 ONE Stop: 08/05/24 16:22 Last Admin: 08/05/24 17:18 Dose: 4 mg Documented By: VG Ondansetron HCl (Ondansetron Odt 4 Mg Tabrap) 4 mg PO X1 ONE; Protocol Stop: 08/05/24 12:27 Last Admin: 08/05/24 12:40 Dose: 4 mg Documented By: DAYANARA Zonathaly morphine Reglan vomited in with complete resolution of symptoms Consultations Consultation(s) initiated? (list below): No Diagnosis Differential diagnosis abdominal pain: abdominal pain, gastroenteritis and pancreatitis Most likely diagnosis given after review of the tests above:: Gallbladder sludge, abdominal pain Admission Indicated Admission indicated?: not indicated Admission Request Was there a request for admission?: No Disposition Plan Disposition Plan: Discharge Discharge Attestation Discharge Attestation: The patient and all family members were given an opportunity to ask questions and understood the discharge instructions. Discharge instructions specifically effects, indications for sooner follow up or return to the emergency department, and the expected course of current diagnosis. Patient condition: Stable Discharge Plan Plan Patient Disposition: HOME (Self Care) Disposition Comment: stable Prescriptions/Referrals Prescriptions/Med Rec: New atenolol 50 mg tablet 50 mg PO QDAY Qty: 30 0RF metoclopramide HCl [Reglan] 10 mg tablet 10 mg PO Q6H PRN (Reason: nausea and vomiting) Qty: 30 0RF pantoprazole [Protonix] 40 mg tablet,delayed release (DR/EC) 40 mg PO QDAY Qty: 20 0RF acetaminophen-codeine 300-30 mg tablet 1 tab PO Q8H PRN (Reason: pain) Qty: 20 0RF No Action acetaminophen 650 mg tablet extended release 650 mg PO Q8H PRN (Reason: fever or pain) Qty: 30 0RF Rx Instructions: swallow whole; do not chew/break/dissolve/open atenolol 50 mg Tablet 50 mg PO QDAY prochlorperazine maleate [Compazine] 10 mg tablet 10 mg PO BID PRN (Reason: nausea and vomiting) Qty: 14 0RF capsaicin 0.1 % cream 1 applic topical BID Qty: 60 0RF Rx Instructions: do not wash area for at least 30 min after application cyclobenzaprine 10 mg tablet 10 mg PO TID PRN (Reason: muscle spasm) Qty: 20 0RF Referrals: Papo Pulido MD [Primary Care Provider] - In 1 week Problem List Clinical Impression: Epigastric abdominal pain, Gallbladder sludge Patient/Caregiver Discharge Instructions Discharge Activity: activity as tolerated Education Materials: Treating Gallstones Additional Instructions: Thank you for the opportunity for serving you today. You are stable for discharged . You are advised to: Follow-up with your PCP in 1 to 2 days ask for referral to general surgeon Return to ED for worsening of symptoms Increase oral fluids Take medication as prescribed Print Language: Croatian Stand Alone Forms: Anne-Marie Award Info., Patient Portal Info Letter PA/SOFT WORK WRAPPER [employer]AYER AND EXAMINER Supervising Physician PA/SOFT WORK WRAPPER [employer]ER AND EXAMINER Supervising Physician: MD Cody
[2024-08-05 16:34] VITALS: BP 153/101; PULSE 79; RESP 18; TEMP 36.8; O2SAT 96
[2024-08-05] MEDS: METOCLOPRAMIDE INJ 5 MG/ML VIAL 2 ML 10 MG IVP (17:15)
[2024-08-05] MEDS: MORPHINE SULF INJ 10 MG/ML VIAL 4 MG IVP (17:18)
[2024-08-05] MEDS: FAMOTIDINE INJ 10 MG/ML VIAL 2 ML 20 MG IVP (17:21)
[2024-08-05 18:38] VITALS: BP 133/104; PULSE 122; RESP 18; TEMP 37.3; O2SAT 96
[2024-08-05 19:45] VITALS: BP 138/85; PULSE 80; RESP 18; TEMP 37.2; O2SAT 97
== END 2024-08-05 19:45 | disposition home or self-care (01) ==
PROVIDERS: Nurse Practitioner Family; Emergency Provider Family Medicine; PCP Family Medicine
DX: K82.8 Other specified diseases of gallbladder (principal); I10 Essential (primary) hypertension
CPT/HCPCS: 36415; 76705; 80053; 80307; 81001; 83690; 85025; 96374; 96375; 99284; J2270; J2765; J3490; Q0162

== ENCOUNTER 2024-09-21 15:32 | Emergency (ER) | payer MEDICAID, SELFPAY ==
[2024-09-21 15:33] VITALS: BMI 21.4
[2024-09-21 15:34] VITALS: BP 186/97; PULSE 62; RESP 19; TEMP 36.6; O2SAT 99
--- NOTE | 2024-09-21 15:45 | XR_ITS ---
Examination: Abdomen sonogram, Limited Date and time of exam: September 21, 2024 1541 hours INDICATIONS: Right upper abdominal pain with nausea vomiting beginning 2 months ago Technique: Real-time carreon scale transabdominal sonographic images of the upper abdomen obtained. Findings: Negative for gallstones Gallbladder wall 0.3 cm no edema Common bile duct 0.3 cm Pancreatic head 2.8 cm Liver 13.6 cm no focal liver lesions Normal hepatopedal portal venous O Patent IVC IMPRESSION: Normal gallbladder Normal common bile duct Normal liver
--- NOTE | 2024-09-21 15:46 | PD.EDRME ---
Rapid Medical Screening Exam [facility] Arrival date/time: 09/21/24 15:32 54-year-old male with no known medical history presents to the emergency room with a chief complaint of right upper quadrant abdominal pain and tenderness, nausea, vomiting x 2 days. I have greeted and performed a focused initial assessment of this patient. A comprehensive ED assessment and evaluation of the patient, analysis of all test results, and completion of the medical decision making process will be conducted by additional ED providers. Chief Complaint: Abdominal Pain Vital signs: Vital Signs Temperature 97.8 F 09/21/24 15:34 Pulse Rate 62 09/21/24 15:34 Respiratory Rate 19 09/21/24 15:34 Blood Pressure 186/97 H 09/21/24 15:34 Pulse Oximetry (%) 99 09/21/24 15:34 Oxygen Delivery Method Room Air 09/21/24 15:34 Vital signs reviewed by provider: Yes
[2024-09-21 16:43] LABS: Basophils % (Auto) 0 % (0-2.5); Eosinophils % (Auto) 0 % (0-10); Hematocrit 42.5 % (41.0-53.0); Hemoglobin 14.5 g/dL (13.5-16.0); Immature Granulocytes % (Auto) 0 % (0-0); Immature Granulocytes Auto 0.03 Thou/mm3 (0.00-0.00); Lymphocytes # (Auto) 1.2 Thou/mm3 (1.0-4.8); Lymphocytes % (Auto) 14 % (10-50); Mean Corpuscular HGB Conc 34.1 g/dl (31.0-37.0); Mean Corpuscular Volume 91 fL (80-100); Monocytes # (Auto) 0.2 Thou/mm3 (0.0-0.8); Monocytes % (Auto) 2 % (0-12); Neutrophils # (Auto) 6.8 Thou/mm3 (1.8-7.7); Neutrophils % (Auto) 83 % (37-80); Nucleated Red Blood Cell % 0 /100 WBC (0); Platelet Count 225 Thou/mm3 (140-440); RDW Standard Deviation 45.6 fL (35.1-43.9); Red Blood Count 4.67 Miln/mm3 (4.50-5.90); White Blood Count 8.3 Thou/mm3 (3.8-10.6)
[2024-09-21] MEDS: HYDROcodone/APAP 5/325 TABLET 1 TAB PO (16:56)
[2024-09-21] MEDS: ONDANSETRON ODT 4 MG TABRAP PO (16:56)
[2024-09-21 17:40] LABS: Alanine Aminotransferase 152 U/L (10-49); Albumin, Serum 5.2 gm/dL (3.5-5.0); Albumin/Globulin Ratio 1.6 (1.2-2.2); Alkaline Phosphatase 124 U/L (46-116); Anion Gap 12 (7-16); Aspartate Amino Transferase 68 U/L (0-34); BUN/Creatinine Ratio 16 Ratio (12-20); Bilirubin,Total 0.7 mg/dL (0.3-1.2); Blood Urea Nitrogen 23 mg/dL (9-23); Calcium 10.5 mg/dL (8.3-10.6); Calcium (Corrected) 10.5 mg/dL (8.5-10.1); Carbon Dioxide 23.1 mMol/L (20.0-31.0); Chloride 106 mMol/L (98-107); Creatinine (Component) 1.4 mg/dL (0.6-1.3); Estimated Creatinine Clearance 47.2 mL/min (>60); Globulin 3.3 gm/dL (2.3-3.5); Glucose 201 mg/dL (74-106); Lipase 38 U/L (12-53); Osmolality,Calculated 290 (275-295); Potassium 4.4 mMol/L (3.4-5.1); Sodium 141 mMol/L (136-145); Total Protein 8.5 gm/dL (5.7-8.2); eGFR 59 See Note
[2024-09-21 17:55] LABS: Collection Type, Urine Clean Catch; Squamous Epithelial Cell,Urine 0 /hpf (0-5); WBC,Urine 0 /hpf (0-5)
[2024-09-21 18:07] LABS: Amorphous Crystals,Urine Present (Absent); Bilirubin,Urine Negative (Negative); Blood,Urine Negative (Negative); Color,Urine Drk-Yellow (Lt Yel-Yel); Glucose, Urine Negative (Negative); Hyaline Casts,Urine 1 /hpf (0-1); Ketones,Urine Trace (Negative); Leukocyte Esterase,Urine Negative (Negative); Nitrite,Urine Negative (Negative); Protein,Urine 1+ (Neg - Trace); RBC,Urine 17 /hpf (0-3); Renal Epithelial Cells,Urine 129 /hpf (0-5); Specific Gravity,Urine 1.039 (1.001-1.035)
[2024-09-21 18:11] LABS: Clarity,Urine Turbid (Clear/Hazy)
--- NOTE | 2024-09-21 19:04 | EDNOTE_ITS ---
<Statement entered by Smita Okeefe MD - 09/22/24 05:25> As co-signing physician, I was present and available for consult prn. I concur with the plan and care as documented by the midlevel provider. ED Abdominal Pain RME/HPI General Chief Complaint: Abdominal Pain Stated complaint: ABDOMINAL PAIN Time seen by provider: 09/21/24 18:44 Arrival date/time: 09/21/24 15:32 RME / HPI RME / HPI narrative: 54-year-old male with no known medical history presents to the emergency room with a chief complaint of right upper quadrant abdominal pain and tenderness, nausea, vomiting x 2 days. Described as dull ache, severity moderate. Patient denies any fever denies any other complaints no medications taken prior to arrival. Patient admits of smoking marijuana on a regular basis. Related Data Home Medications ?Medication ?Instructions ?Recorded ?Confirmed atenolol 50 mg tablet 50 mg PO QDAY 09/14/1812/08 Previous Rx's ?Medication ?Instructions ?Recorded acetaminophen 650 mg 650 mg PO Q8H PRN fever or p ain 09/23/21 tablet,extended release #30 tabs cyclobenzaprine 10 mg tablet 10 mg PO TID PRN muscle s pasm #20 11/12/22 tabs prochlorperazine maleate 10 mg 10 mg PO BID PRN nausea and 04/20/23 tablet (Compazine) vomiting #14 tabs capsaicin 0.1 % topical cream 1 applic topical BID Abd ominal 02/12/24 pain #60 grams acetaminophen 300 mg-codeine 30 mg 1 tab PO Q8H PRN pa in #20 tabs 08/05/24 tablet atenolol 50 mg tablet 50 mg PO QDAY #30 tabs 08/05 metoclopramide HCl 10 mg tablet 10 mg PO Q6H PRN nause a and 08/05/24 (Reglan) vomiting #30 tabs pantoprazole 40 mg tablet,delayed 40 mg PO QDAY #20 ta bs 08/05/24 release (Protonix) acetaminophen 300 mg-codeine 30 mg 1 tab PO Q8H PRN pa in #20 tabs 09/21/24 tablet dicyclomine 20 mg tablet 20 mg PO QID PRN abdominal p ain 09/21/24 #20 tabs pantoprazole 40 mg tablet,delayed 40 mg PO QAM #14 tab s 09/21/24 release (Protonix) Allergies Allergy/AdvReac Type Severity Reaction Status Date / Time ibuprofen AdvReac Severe abd pain Verified 08/05/24 12:03 Review of Systems Review of Systems Narrative Review of Systems: Review of system reviewed and within normal limits except mentioned in HPI ED Exam Narrative Physical exam: VITAL SIGNS: Reviewed. GENERAL APPEARANCE: Alert and interactive, follows commands, no acute distress, HEAD AND FACE: Non-traumatic. ENT: PERRL, pink conjunctivitis, eyelid no trauma, Mucous membrane moist. NECK: Supple, nontender, no nuchal rigidity. CHEST: No tenderness, no crepitus, no paradoxical movement, no retractions. LUNGS: Clear, well ventilated, symmetric, no rales, no wheezing, no ronchi, no stridor, good breath sounds bilaterally. HEART: Regular rate, regular rhythm, no murmur, no gallops. ABDOMEN: Soft, positive bowel sounds, nondistended, no guarding, epigastric tenderness, no rebound, no masses, RECTAL: Deferred. GENITAL: Deferred. NEUROLOGICAL: Gross motor function intact sensory function intact, Appropriate for age. MUSCULOSKELETAL: low back nontender, full range of motion. EXTREMITIES: Nontender, full range of motion. SKIN: Color pink, dry, no rash, no lacerations, no abrasions, no contusions. LYMPHATICS: Deferred. Course Quality Measures none Orders Category Date Time Status US gall bladder Stat Exams 09/21/24 15:45 Completed CBC Stat Lab 09/21/24 16:31 Completed CMP [Comprehensive Metabolic Panel] Stat Lab 09/21/24 17:13 Completed Lipase Stat Lab 09/21/24 17:13 Completed UA [Urinalysis] Stat Lab 09/21/24 17:47 Completed Urine Culture Stat Lab 09/21/24 17:47 Received Dicyclomine [Bentyl] Med 09/21/24 19:03 Discontinued 20 mg PO X1 ONE Famotidine [Pepcid] Med 09/21/24 19:03 Discontinued 40 mg PO X1 ONE HYDROcodone*/APAP 5/325 [[place] 5/325] Med 09/21/24 15:45 Discontinued 1 tab PO X1 ONE HYDROcodone/APAP 10/325 [[place] 10/325] Med 09/21/24 19:03 Discontinued 1 tab PO X1 ONE Ondansetron Odt [Zofran Odt] Med 09/21/24 15:45 Discontinued 4 mg PO X1 ONE Vital Signs Vital signs: Vital Signs Temperature 97.8 F 09/21/24 15:34 Pulse Rate 62 09/21/24 15:34 Respiratory Rate 19 09/21/24 15:34 Blood Pressure 186/97 H 09/21/24 15:34 Pulse Oximetry (%) 99 09/21/24 15:34 Oxygen Delivery Method Room Air 09/21/24 15:34 Abdominal Pain MDM [facility] Narrative [facility] Narrative:: 54-year-old male with no known medical history presents to the emergency room with a chief complaint of right upper quadrant abdominal pain and tenderness, nausea, vomiting x 2 days. Described as dull ache, severity moderate. Patient denies any fever denies any other complaints no medications taken prior to arrival. Patient admits of smoking marijuana on a regular basis. Patient's workup today all came back unremarkable lipase is normal ultrasound of the gallbladder came back unremarkable. Patient received [place], Pepcid, Bentyl, no significant improvement of symptoms Patient data External records reviewed:: None Clinical information provided by:: patient Social determinants that could affect healthcare access:: none Patient has the following chronic illnesses:: Marijuana abuse How is presenting disease/condition affected by chronic disease/condition?: exacerbated by Evaluation data The following diagnostics were reviewed and interpreted by me:: lab results and radiology exam(s) Lab and/or radiology exams considered but not ordered:: None Interpretation Summary: See results in MDM Medications / Prescriptions Medications or Prescriptions considered but not ordered:: None Medication administrations:: Medication Administration History Discontinued Medications Hydrocodone Bitart/Acetaminophen (Hydrocodone/Apap 5/325 Tablet) 1 tab PO X1 ONE Stop: 09/21/24 15:46 Last Admin: 09/21/24 16:56 Dose: 1 tab Documented By: DO Hydrocodone Bitart/Acetaminophen (Hydrocodone/Apap 10/325 Tab) 1 tab PO X1 ONE Stop: 09/21/24 19:04 Dicyclomine HCl (Dicyclomine 10 Mg Capsule) 20 mg PO X1 ONE Stop: 09/21/24 19:04 Famotidine (Famotidine 20 Mg Tablet) 40 mg PO X1 ONE Stop: 09/21/24 19:04 Ondansetron HCl (Ondansetron Odt 4 Mg Tabrap) 4 mg PO X1 ONE; Protocol Stop: 09/21/24 15:46 Last Admin: 09/21/24 16:56 Dose: 4 mg Documented By: DO Charlie Rivera Bentyl, Norco Consultations Consultation(s) initiated? (list below): No Diagnosis Differential diagnosis abdominal pain: abdominal pain and pancreatitis Most likely diagnosis given after review of the tests above:: Epigastric abdominal pain Admission Indicated Admission indicated?: not indicated Admission Request Was there a request for admission?: No Disposition Plan Disposition Plan: Discharge Discharge Attestation Discharge Attestation: The patient was given an opportunity to ask questions and understood the discharge instructions. Discharge instructions specifically effects, indications for sooner follow up or return to the emergency department, and the expected course of current diagnosis. Patient condition: Stable Discharge Plan Plan Patient Disposition: HOME (Self Care) Discharge Disposition comment: stable Prescriptions/Referrals Prescriptions/Med Rec: New acetaminophen-codeine 300-30 mg tablet 1 tab PO Q8H PRN (Reason: pain) Qty: 20 0RF pantoprazole [Protonix] 40 mg tablet,delayed release (DR/EC) 40 mg PO QAM Qty: 14 0RF dicyclomine 20 mg tablet 20 mg PO QID PRN (Reason: abdominal pain) Qty: 20 0RF No Action acetaminophen 650 mg tablet extended release 650 mg PO Q8H PRN (Reason: fever or pain) Qty: 30 0RF Rx Instructions: swallow whole; do not chew/break/dissolve/open atenolol 50 mg Tablet 50 mg PO QDAY prochlorperazine maleate [Compazine] 10 mg tablet 10 mg PO BID PRN (Reason: nausea and vomiting) Qty: 14 0RF capsaicin 0.1 % cream 1 applic topical BID Qty: 60 0RF Rx Instructions: do not wash area for at least 30 min after application atenolol 50 mg tablet 50 mg PO QDAY Qty: 30 0RF metoclopramide HCl [Reglan] 10 mg tablet 10 mg PO Q6H PRN (Reason: nausea and vomiting) Qty: 30 0RF pantoprazole [Protonix] 40 mg tablet,delayed release (DR/EC) 40 mg PO QDAY Qty: 20 0RF acetaminophen-codeine 300-30 mg tablet 1 tab PO Q8H PRN (Reason: pain) Qty: 20 0RF cyclobenzaprine 10 mg tablet 10 mg PO TID PRN (Reason: muscle spasm) Qty: 20 0RF Referrals: No Primary/Family,Physician [Primary Care Provider] - In 1 week Problem List Clinical Impression: Epigastric abdominal pain Patient/Caregiver Discharge Instructions Discharge Activity: activity as tolerated Education Materials: ED Epigastric Pain (Uncertain Cause) Additional Instructions: Thank you for the opportunity for serving you today. You are stable for discharged . You are advised to: Follow-up with your PCP in 1 to 2 days Return to ED for worsening of symptoms Increase oral fluids Print Language: Barbadian Stand Alone Forms: Anne-Marie Award Info., Patient Portal Info Letter PA/BRAEDEN Supervising Physician PA/BRAEDEN Supervising Physician: MD Rony
[2024-09-21] MEDS: FAMOTIDINE 20 MG TABLET 40 MG PO (19:22)
[2024-09-21] MEDS: DICYCLOMINE 10 MG CAPSULE 20 MG PO (19:22)
[2024-09-21] MEDS: HYDROcodone/APAP 10/325 TAB PO (19:22)
== END 2024-09-21 19:26 | disposition home or self-care (01) ==
PROVIDERS: Nurse Practitioner Family; Emergency Provider Emergency Medicine
DX: R10.13 Epigastric pain (principal); R11.2 Nausea with vomiting, unspecified; R10.11 Right upper quadrant pain
CPT/HCPCS: 36415; 76705; 80053; 81001; 83690; 85025; 87086; 99284; Q0162; A9270

== ENCOUNTER 2024-09-26 10:45 | Day surgery (SDC) | payer MEDICAID, SELFPAY ==
--- NOTE | 2024-09-22 06:28 | EKG_ITS ---
[facility] Test Date: 2024-09-22 Pat Name: GREGG PINON Department: Room: - Gender: Male Remote Sensing Technician: ESTEFANI : 1970 Requested By: Mariah Rivas Order Number: [id number] Reading MD: Mariah Rivas Measurements Intervals [place] Rate: 55 P: 48 VA: 142 QRS: 27 QRSD: 89 T: 47 QT: 394 QTc: 379 Interpretive Statements SINUS BRADYCARDIA POSSIBLE LEFT ATRIAL ENLARGEMENT [-0.1mV P WAVE IN V1/V2] SEPTAL MYOCARDIAL INFARCTION , OF INDETERMINATE AGE [40+ ms Q WAVE IN V1/V2] Compared to ECG 11/12/2022 10:40:49 Myocardial infarct finding now present Sinus rhythm no longer present /store/S0/[id number]/[id number].pdf
[2024-09-22 09:26] VITALS: BMI 21.4
--- NOTE | 2024-09-25 14:28 | SUR.PREOP ---
History of aneurysm reviewed with Dr Koch, pt does not follow up with nuerologist.
--- NOTE | 2024-09-25 15:06 | SUR.PREOP ---
Pt notified to come in at 1130 tomorrow for surgery.
[2024-09-26] VITALS (13 sets, daily range): BP systolic 124–201; BP diastolic 85–123; PULSE 56–78; RESP 12–19; TEMP 36.2–36.8; O2SAT 97–100; BMI 22.1
[2024-09-26] MEDS: RINGERS LACTATED 1000 ML 1,000 ML 20 ML IV (11:38)
--- NOTE | 2024-09-26 14:16 | SUR.PHASEI ---
pt received from OR in recovery bay 7. pt obtunded, breathing unlabored on oxymask 6l, oral airway in place. v/s stable. pt dressing to abd dermabond x4 cdi. report received from Miki ÁLVAREZ and Dr. Ballesteros.
--- NOTE | 2024-09-26 14:19 | PD.SUROPNT ---
Date of Procedure 09/26/24 Pre Op Diagnosis Symptomatic cholelithiasis Post Op Diagnosis Cholelithiasis with cholecystitis Cirrhosis of the liver without ascites Procedure Laparoscopic cholecystectomy Findings Very distended gallbladder with multiple small gallstones and chronic cholecystitis. Patient was noted to have mild nodularities throughout the surface of the liver suspicious for mild cirrhosis. No evidence of ascites. Procedure Description Patient was brought into the operating room in supine position. After administration of general endotracheal anesthesia abdomen was prepped and draped in standard surgical manner. A Veress needle was inserted through the umbilicus and pneumoperitoneum was obtained up to 15 mmHg. The Veress needle was then removed, a 5 mm infraumbilical incision was made and the 5mm trocar was inserted. Laparoscopic camera was placed. Under direct visualization a laparoscopic camera a 10 mm trocar was placed in subxiphoid and two 5 mm trocars placed in right upper quadrant. The anterior surface of the liver had mild nodularity suspicious for mild cirrhosis of the liver. There was no evidence of ascites. The gallbladder was identified and was noted to be very distended with multiple small gallstones. The gallbladder was decompressed with an aspirator. It was retracted cephalad and laterally. Dissection started near the infundibulum of gallbladder where cystic duct and gallbladder junction clearly identified. The cystic duct was circumferentially dissected off the peritoneum and surrounding inflammatory tissue. The critical view of safety was clearly demonstrated. Cystic duct was then divided between 2 endoclips proximally and one distally. The cystic artery was similarly dissected and divided. The gallbladder was then from the liver bed using electrocautery. The gallbladder was then placed inside an Endo Catch and removed from the abdomen utilizing subxiphoid trocar site. The area was copiously and thoroughly washed and irrigated, all the fluid was suctioned and the suction fluid returned clear. Hemostasis achieved using electrocautery. Endoclips noted be in place and intact without any bleeding or any leakage. Hemostasis was adequate and satisfactory. The subxiphoid trocar sites fascial defect was closed with 0 Vicryl. Instruments and trocars removed, pneumoperitoneum was evacuated and the incisions closed with 4-0 Monocryl in subcuticular fashion. Instrument needle and sponge counts were all reported to be correct X2. Patient tolerated the procedure well, was extubated, breathing spontaneously and without difficulty and was transferred to postanesthesia care in stable condition. Anesthesia GETA and local Pathology / specimen Other (Gallbladder and contents) Estimated Blood Loss 10 Condition Stable Disposition PACU Surgeon Mariah Rivas MD Surgical Staff Operation Date: 09/26/24 13:30 Case Staff Anesthesiologist: Jude Ballesteros RN First Assistant: Agnes Ramesh
[2024-09-26] MEDS: ONDANSETRON INJ 2 MG/ML INJ 2 ML 4 MG IV (14:27)
[2024-09-26] MEDS: HYDROmorphone INJ 2 MG/ML VIAL 0.4 MG IVP (14:29)
[2024-09-26] MEDS: ACETAMINOPHEN IVPB 1,000 MG/100 ML VIAL 250 MG IV (14:30)
[2024-09-26] MEDS: MORPHINE SULF INJ 10 MG/ML VIAL 3 MG IVP ×2 (14:42→15:36)
[2024-09-26] MEDS: hydrALAZINE INJ 20 MG/ML VIAL 10 MG IV ×2 (14:50→15:55)
[2024-09-26] MEDS: METOCLOPRAMIDE INJ 5 MG/ML VIAL 2 ML 10 MG IV (15:00)
--- NOTE | 2024-09-26 15:04 | SUR.PHASEII ---
pt able to tolerate oral fluids without difficulty swallowing or nausea/vomiting.
[2024-09-26] MEDS: DEXAMETHASONE SOD PHOS INJ 4 MG/ML VIAL 10 MG IVP (15:23)
--- NOTE | 2024-09-26 15:45 | SUR.PHASEII ---
After giving Morphine pts arm developed a rash, informed anaesthesia provider Dr. Ballesteros, new orders received.
[2024-09-26] MEDS: DiphenhydrAMINE INJ 50 MG/ML VIAL 25 MG IVP (15:53)
--- NOTE | 2024-09-26 16:15 | SUR.PHASEII ---
After IV Benadryl pts arm rash resolved. Dr. Ballesteros inspected pts arm stated it was possible pt had a sensitivity to second dose of Morphine not a true allergy.
--- NOTE | 2024-09-26 16:20 | SUR.PHASEII ---
pt awake and alert, breathing unlabored on room air. v/s stable. pt dressing to abd dermabond x4 cdi. d/c instructions given with mother Kaylie in room, all questions answered. pt d/c via wheelchair with all belongings.
== END 2024-09-26 16:20 | disposition home or self-care (01) ==
PROVIDERS: PCP Family Medicine; Referring Provider Surgery; Visit Provider Surgery
PROC: 0FT44ZZ Resection of Gallbladder, Percutaneous Endoscopic Approach (ICD-10-PCS; CPT 47562; principal; 2024-09-26 13:15)
DX: K80.10 Calculus of gallbladder with chronic cholecystitis without obstruction (principal); K74.60 Unspecified cirrhosis of liver; F41.9 Anxiety disorder, unspecified; F32.A Depression, unspecified; F17.210 Nicotine dependence, cigarettes, uncomplicated; Z01.810 Encounter for preprocedural cardiovascular examination; Z79.899 Other long term (current) drug therapy
CPT/HCPCS: 47562; 93005; A4217; A4649; J0131; J0360; J0694; J1100; J1171; J1200; J2250; J2270; J2405; J2704; J2765; J3010; J3490; J7120

== ENCOUNTER 2024-11-16 15:00 | Emergency (ER) | payer MEDICAID, SELFPAY ==
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
[2024-11-16 15:37] VITALS: BP 145/91; PULSE 105; RESP 18; TEMP 37.1; O2SAT 95
[2024-11-16 15:38] VITALS: BMI 26.4
[2024-11-16 16:39] LABS: Basophils % (Auto) 0 % (0-2.5); Eosinophils % (Auto) 0 % (0-10); Hematocrit 41.3 % (41.0-53.0); Hemoglobin 14.6 g/dL (13.5-16.0); Immature Granulocytes % (Auto) 0 % (0-0); Immature Granulocytes Auto 0.01 Thou/mm3 (0.00-0.00); Lymphocytes # (Auto) 3.2 Thou/mm3 (1.0-4.8); Lymphocytes % (Auto) 47 % (10-50); Mean Corpuscular HGB Conc 35.4 g/dl (31.0-37.0); Mean Corpuscular Hemoglobin 30.6 pg (25.0-35.0); Mean Corpuscular Volume 87 fL (80-100); Monocytes # (Auto) 0.4 Thou/mm3 (0.0-0.8); Monocytes % (Auto) 6 % (0-12); Neutrophils # (Auto) 3.1 Thou/mm3 (1.8-7.7); Neutrophils % (Auto) 47 % (37-80); Nucleated Red Blood Cell % 0 /100 WBC (0); Platelet Count 191 Thou/mm3 (140-440); RDW Standard Deviation 42.5 fL (35.1-43.9); Red Blood Count 4.77 Miln/mm3 (4.50-5.90); White Blood Count 6.7 Thou/mm3 (3.8-10.6)
[2024-11-16] MEDS: SODIUM CHLORIDE 0.9% 1000 ML 1,000 ML 999 ML IV (16:54)
[2024-11-16 17:11] LABS: Collection Type, Urine Clean Catch
[2024-11-16 17:16] LABS: Alanine Aminotransferase 139 U/L (10-49); Albumin, Serum 4.7 gm/dL (3.5-5.0); Albumin/Globulin Ratio 1.7 (1.2-2.2); Alkaline Phosphatase 154 U/L (46-116); Anion Gap 11 (7-16); Aspartate Amino Transferase 218 U/L (0-34); BUN/Creatinine Ratio 13 Ratio (12-20); Bilirubin,Total 0.6 mg/dL (0.3-1.2); Blood Urea Nitrogen 14 mg/dL (9-23); Calcium 9.3 mg/dL (8.3-10.6); Calcium (Corrected) 9.3 mg/dL (8.5-10.1); Carbon Dioxide 23.7 mMol/L (20.0-31.0); Chloride 110 mMol/L (98-107); Creatinine (Component) 1.1 mg/dL (0.6-1.3); Estimated Creatinine Clearance 60.2 mL/min (>60); Globulin 2.7 gm/dL (2.3-3.5); Glucose 84 mg/dL (74-106); Magnesium 2.4 mg/dL (1.6-2.6); Osmolality,Calculated 288 (275-295); Potassium 4.2 mMol/L (3.4-5.1); Sodium 145 mMol/L (136-145); Total Protein 7.4 gm/dL (5.7-8.2); eGFR > 60 See Note
[2024-11-16 17:16] LABS: Bacteria,Urine Rare; Bilirubin,Urine Negative (Negative); Blood,Urine Negative (Negative); Clarity,Urine Clear (Clear/Hazy); Color,Urine Lt-Yellow (Lt Yel-Yel); Culture Indicated,Urine Not Indicated; Glucose, Urine Negative (Negative); Ketones,Urine Trace (Negative); Leukocyte Esterase,Urine Negative (Negative); Nitrite,Urine Negative (Negative); Protein,Urine Negative (Neg - Trace); RBC,Urine 1 /hpf (0-3); Squamous Epithelial Cell,Urine < 1 /hpf (0-5); Urobilinogen,Urine Negative mg/dL (0.0-1.0); WBC,Urine 1 /hpf (0-5)
[2024-11-16 17:29] LABS: Amphetamine/Methamp Scrn,U Negative (Negative); Barbiturate Screen,Urine Negative (Negative); Benzodiazepines Screen,Urine Negative (Negative); Benzoylecgonine Screen, Ur Negative (Negative); Fentanyl Screen,Urine Negative (Negative); Opiate Screen,Urine Positive (Negative); THC Screen,Urine Positive (Negative)
--- NOTE | 2024-11-16 17:30 | PC.NURSE ---
PT KEEPS YELLING AT NURSES IN ROOM 11, CUSSING AND YELLING WHERE'S THE DOCTOR? PT ASKED NICELY NOT TO YELL AND INFORMED THAT NURSE WILL TALK WITH THE PROVIDOER SOON POSSIBLE
[2024-11-16 17:31] LABS: Alcohol, Blood Medical 423.4 mg/dL (0-10.0)
[2024-11-16 17:39] VITALS: BP 148/100; PULSE 74; RESP 19; TEMP 36.6; O2SAT 97
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
== END 2024-11-16 18:00 | disposition left against medical advice (07) ==
PROVIDERS: Nurse Practitioner Family; Emergency Provider Emergency Medicine
DX: F10.129 Alcohol abuse with intoxication, unspecified (principal); M79.631 Pain in right forearm; Y90.9 Presence of alcohol in blood, level not specified
CPT/HCPCS: 36415; 73090; 80053; 80307; 80320; 81001; 83735; 85025; 99284; J7030; G0480

== ENCOUNTER 2025-01-12 10:17 | Emergency (ER) | payer MEDICAID, SELFPAY ==
[2025-01-12 10:19] VITALS: BP 136/94; PULSE 87; RESP 17; TEMP 36.8; O2SAT 97; BMI 22.3
--- NOTE | 2025-01-12 10:23 | EKG_ITS ---
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
[2025-01-12 10:28] VITALS: O2SAT 95
--- NOTE | 2025-01-12 11:21 | XR_ITS ---
Examination: CT abdomen with intravenous contrast CT pelvis with intravenous contrast 2-D coronal reconstructions 2-D sagittal reconstructions Date and time of exam:January 12, 2025, 1754 hours, comparison June 17, 2024. INDICATIONS: Mid abdominal pain 3 days, history hernia abdominal aortic aneurysm CTDI: vol (mGy) 5.53. DLP: (mGycm) 309 Technique: Multiple axial sections of the abdomen and pelvis have been obtained. 64 slice high-resolution scanner used. 3 mm axial sections have been obtained, post intravenous injection 30 cc [id number]-300 intravenous 2-D sagittal, coronal reconstructions obtained. Low dose protocols were performed. One or more of the following dose reduction techniques were used; automated exposure control, adjustment of the mA and/or KV according to patient size, use of iterative reconstruction technique. Findings: Large retrocardiac gastric hernia No focal liver lesions. Absent gallbladder. Splenic calcifications. No pancreatic or adrenal mass. No renal or ureteral calculi, no hydronephrosis Normal appendix. 8 mm fat-containing umbilical hernia Colonic diverticulosis. No diverticulitis. Absent uterus. Contracted urinary bladder. Advanced degenerative disc disease L5-S1. IMPRESSION: Large retrocardiac gastric hernia. Absent gallbladder. No common bile duct stones or extrahepatic biliary ductal dilatation. No renal or ureteral calculi. Normal appendix Tiny fat-containing umbilical hernia. Colonic diverticulosis, no diverticulitis No bowel obstruction No abdominal aortic aneurysm
--- NOTE | 2025-01-12 11:22 | PD.EDRME ---
Rapid Medical Screening Exam [facility] Arrival date/time: 01/12/25 10:17 Chief Complaint: Abdominal Pain Vital signs: Vital Signs Temperature 98.2 F 01/12/25 10:19 Pulse Rate 87 01/12/25 10:19 Respiratory Rate 17 01/12/25 10:19 Blood Pressure 136/94 H 01/12/25 10:19 Pulse Oximetry (%) 97 01/12/25 10:19 Oxygen Delivery Method Room Air 01/12/25 10:19 Patient is a 54-year-old male seen emerged from concerns for back pain and abdominal pain for the last few weeks getting worse as well as nausea. Patient states that he had a cholecystectomy performed by Dr. Rivas not too long ago and since then has had symptoms. Also endorses occasional fever, no chills. Occasionally drinks alcohol, no drugs.
[2025-01-12] MEDS: HYDROcodone/APAP 5/325 TABLET 1 TAB PO ×2 (12:20→20:15)
[2025-01-12] MEDS: ONDANSETRON ODT 4 MG TABRAP PO (12:21)
[2025-01-12 12:30] LABS: Basophils # (Auto) 0.0 Thou/mm3 (0.0-0.2); Basophils % (Auto) 0 % (0-2.5); Eosinophils # (Auto) 0.1 Thou/mm3 (0.0-0.5); Eosinophils % (Auto) 1 % (0-10); Hematocrit 45.6 % (41.0-53.0); Hemoglobin 15.6 g/dL (13.5-16.0); Immature Granulocytes Auto 0.04 Thou/mm3 (0.00-0.00); Lymphocytes # (Auto) 3.7 Thou/mm3 (1.0-4.8); Lymphocytes % (Auto) 45 % (10-50); Mean Corpuscular HGB Conc 34.2 g/dl (31.0-37.0); Mean Corpuscular Hemoglobin 30.9 pg (25.0-35.0); Mean Corpuscular Volume 90 fL (80-100); Monocytes # (Auto) 0.7 Thou/mm3 (0.0-0.8); Monocytes % (Auto) 9 % (0-12); Neutrophils # (Auto) 3.5 Thou/mm3 (1.8-7.7); Neutrophils % (Auto) 44 % (37-80); Nucleated Red Blood Cell # 0.00 Thou/mm3 (0.00-0.00); Nucleated Red Blood Cell % 0 /100 WBC (0); Platelet Count 195 Thou/mm3 (140-440); RDW Standard Deviation 42.4 fL (35.1-43.9); Red Blood Count 5.05 Miln/mm3 (4.50-5.90); White Blood Count 8.1 Thou/mm3 (3.8-10.6)
[2025-01-12 12:47] LABS: INR 1.0 (0.9-1.3); Prothrombin Time 11.1 Seconds (9.0-12.2)
[2025-01-12 12:52] LABS: Alanine Aminotransferase 152 U/L (10-49); Albumin, Serum 5.0 gm/dL (3.5-5.0); Albumin/Globulin Ratio 1.5 (1.2-2.2); Alkaline Phosphatase 160 U/L (46-116); Anion Gap 13 (7-16); Aspartate Amino Transferase 112 U/L (0-34); BUN/Creatinine Ratio 16 Ratio (12-20); Bilirubin,Total 0.7 mg/dL (0.3-1.2); Blood Urea Nitrogen 23 mg/dL (9-23); Calcium 10.5 mg/dL (8.3-10.6); Calcium (Corrected) 10.5 mg/dL (8.5-10.1); Carbon Dioxide 23.6 mMol/L (20.0-31.0); Chloride 101 mMol/L (98-107); Creatinine (Component) 1.4 mg/dL (0.6-1.3); Estimated Creatinine Clearance 49.1 mL/min (>60); Globulin 3.4 gm/dL (2.3-3.5); Glucose 96 mg/dL (74-106); Lipase 57 U/L (12-53); Osmolality,Calculated 279 (275-295); Potassium 3.9 mMol/L (3.4-5.1); Sodium 138 mMol/L (136-145); Total Protein 8.4 gm/dL (5.7-8.2); Troponin I < 0.002 ng/mL (0.0-0.045); eGFR 59 See Note
[2025-01-12 14:03] LABS: Collection Type, Urine Clean Catch
[2025-01-12 14:09] LABS: Bilirubin,Urine Negative (Negative); Blood,Urine Negative (Negative); Clarity,Urine Clear (Clear/Hazy); Color,Urine Yellow (Lt Yel-Yel); Culture Indicated,Urine Not Indicated; Glucose, Urine Negative (Negative); Hyaline Casts,Urine 1 /hpf (0-1); Ketones,Urine Negative (Negative); Leukocyte Esterase,Urine Negative (Negative); Nitrite,Urine Negative (Negative); PH,Urine 5.5 (5.0-7.0); Protein,Urine Trace (Neg - Trace); RBC,Urine 2 /hpf (0-3); Specific Gravity,Urine 1.029 (1.001-1.035); Squamous Epithelial Cell,Urine < 1 /hpf (0-5); Urobilinogen,Urine Negative mg/dL (0.0-1.0); WBC,Urine 2 /hpf (0-5)
--- NOTE | 2025-01-12 20:16 | EDNOTE_ITS ---
ED Abdominal Pain RME/HPI General Chief Complaint: Abdominal Pain Stated complaint: CHEST PAIN Time seen by provider: 01/12/25 20:08 Arrival date/time: 01/12/25 10:17 Source: patient Limitations: no limitations RME / HPI RME / HPI narrative: 01/12/25 10:17 Patient is a 54-year-old male whose had ongoing abdominal pain, chest pain, and back pain, since September 2024. He is status post cholecystectomy September 2024. He has a history of hypertension. He has a history of ANGIE and alcohol abuse. He denies any fevers or chills. Has no current nausea, vomiting, or diarrhea. Has no urinary complaints. He has no other acute complaints. Related Data Home Medications ?Medication ?Instructions ?Recorded ?Confirmed atenolol 50 mg tablet 50 mg PO QDAY 09/14/1809/26 hydroxyzine HCl 25 mg tablet 25 mg PO DAILY 09/22/24 0 09/26/24 Previous Rx's ?Medication ?Instructions ?Recorded atenolol 50 mg tablet 50 mg PO QDAY #30 tabs 08/05 metoclopramide HCl 10 mg tablet 10 mg PO Q6H PRN nause a and 08/05/24 (Reglan) vomiting #30 tabs docusate sodium 100 mg capsule 100 mg PO BID #40 caps 09/26/24 (Colace) hydrocodone 5 mg-acetaminophen 325 1 tab PO Q6H PRN pa in (scale score 09/26/24 mg tablet 7-10) #20 tabs Allergies Allergy/AdvReac Type Severity Reaction Status Date / Time ibuprofen AdvReac Severe abd pain Verified 09/26/24 11:25 Review of Systems Review of Systems Systems Reviewed: All systems reviewed, normal except as documented ED Exam General Limitations: Present no limitations General appearance: Present alert and in no apparent distress Head Head exam: Present atraumatic Eye Eye exam: Present normal appearance, PERRL and EOMI ENT ENT exam: Present normal exam, normal oropharynx and mucous membranes moist Neck Neck exam: Present normal inspection, full ROM and trachea midline Chest Chest inspection: Present normal inspection and symmetric chest wall rise Respiratory Respiratory exam: Present normal lung sounds bilaterally Cardiovascular Cardiovascular exam: Present regular rate, normal rhythm and normal heart sounds Abdominal Exam Abdominal exam: Present soft; Absent distention or guarding Extremities Exam Extremities exam: Present normal inspection and full ROM Back Exam Back exam: Present normal inspection and full ROM Neurological Exam Neurological exam: Present alert and oriented X3 Psychiatric Psychiatric exam: Present normal affect and normal mood Skin Skin exam: Present warm, dry, intact and normal color Course Quality Measures none Orders Category Date Time Status CT Screening NOW Care 01/12/25 11:21 Active EKG (ED ONLY) *Do not use* NOW Care 01/12/25 10:[address] abdomen pelvis w con Stat Exams 01/12/25 11:21 Completed EKG (ED Only) Stat Exams 01/12/25 10:23 Draft CBC Stat Lab 01/12/25 11:55 Completed CMP [Comprehensive Metabolic Panel] Stat Lab 01/12/25 11:55 Completed Lipase Stat Lab 01/12/25 11:55 Completed PT [Prothrombin Time with INR] Stat Lab 01/12/25 11:55 Completed Troponin I Stat Lab 01/12/25 11:55 Completed UA, C/S IF [Urinalysis, C/S if Indicated] Stat Lab 01/12/25 13:41 Completed HYDROcodone*/APAP 5/325 [[place] 5/325] Med 01/12/25 11:22 Discontinued 1 tab PO X1 ONE HYDROcodone*/APAP 5/325 [[place] 5/325] Med 01/12/25 20:12 Discontinued 1 tab PO X1 ONE Ondansetron Odt [Zofran Odt] Med 01/12/25 11:22 Discontinued 4 mg PO X1 ONE Vital Signs Vital signs: Vital Signs Temperature 98.2 F 01/12/25 10:19 Pulse Rate 87 01/12/25 10:19 Respiratory Rate 17 01/12/25 10:19 Blood Pressure 136/94 H 01/12/25 10:19 Pulse Oximetry (%) 97 01/12/25 10:19 Oxygen Delivery Method Room Air 01/12/25 10:19 Abdominal Pain MDM MDM Narrative MDM Narrative:: Patient is a 54-year-old male whose had ongoing abdominal pain, chest pain, and back pain, since September 2024. He is status post cholecystectomy September 2024. He has a history of hypertension. He has a history of ANGIE and alcohol abuse. He denies any fevers or chills. Has no current nausea, vomiting, or diarrhea. Has no urinary complaints. He has no other acute complaints. On exam, patient is nontoxic-appearing and in no visible signs of distress. Vital signs are stable. He has no abdominal distention or guarding. Patient CBC reveals no leukocytosis or anemia. CMP reveals a chronically elevated creatinine of 1.4, liver enzymes are elevated. AST is 112, ALT 152, alk phos 160. Lipase 57. Urinalysis unremarkable. CT is unremarkable for any acute intra-abdominal findings. Patient does have a retrocardiac hernia which is old. EKG revealed mild sinus tachycardia at [address] changes or dynamic T waves. Voltage criteria is met for LVH. Results were discussed with the patient. He states he has a appointment on Wednesday for endoscopy. I do believe this may assist in the workup for his pain. I do believe the patient be discharged at this time. Patient will be discharged from the emergency room. He may return as needed for any worsening or emergent changes. Patient data External records reviewed:: None Clinical information provided by:: patient Social determinants that could affect healthcare access:: none Patient has the following chronic illnesses:: Hypertension, chronic pain How is presenting disease/condition affected by chronic disease/condition?: exacerbated by Evaluation data The following diagnostics were reviewed and interpreted by me:: lab results, radiology exam(s) and EKG tracing(s) Lab and/or radiology exams considered but not ordered:: n/a Interpretation Summary: Workup was unremarkable for any acute changes Medications / Prescriptions Medications or Prescriptions considered but not ordered:: n/a Medication administrations:: Medication Administration History Discontinued Medications Hydrocodone Bitart/Acetaminophen (Hydrocodone/Apap 5/325 Tablet) 1 tab PO X1 ONE Stop: 01/12/25 11:23 Last Admin: 01/12/25 12:20 Dose: 1 tab Documented By: Hydrocodone Bitart/Acetaminophen (Hydrocodone/Apap 5/325 Tablet) 1 tab PO X1 ONE Stop: 01/12/25 20:13 Last Admin: 01/12/25 20:15 Dose: 1 tab Documented By: MISTY Ondansetron HCl (Ondansetron Odt 4 Mg Tabrap) 4 mg PO X1 ONE; Protocol Stop: 01/12/25 11:23 Last Admin: 01/12/25 12:21 Dose: 4 mg Documented By: See above Consultations Consultation(s) initiated? (list below): No Diagnosis Differential diagnosis abdominal pain: calculus of kidney, constipation and gastroenteritis Most likely diagnosis given after review of the tests above:: Chronic pain Admission Indicated Admission indicated?: not indicated Admission Request Was there a request for admission?: No Disposition Plan Disposition Plan: Discharge Discharge Attestation Discharge Attestation: The patient and all family members were given an opportunity to ask questions and understood the discharge instructions. Discharge instructions specifically effects, indications for sooner follow up or return to the emergency department, and the expected course of current diagnosis. Patient condition: Stable Discharge Plan Plan Patient Disposition: HOME (Self Care) Patient condition on transfer: Stable Prescriptions/Referrals Prescriptions/Med Rec: No Action atenolol 50 mg Tablet 50 mg PO QDAY atenolol 50 mg tablet 50 mg PO QDAY Qty: 30 0RF metoclopramide HCl [Reglan] 10 mg tablet 10 mg PO Q6H PRN (Reason: nausea and vomiting) Qty: 30 0RF hydroxyzine HCl 25 mg tablet 25 mg PO DAILY Patient Comments: TAKE 1 TO 2 TABLETS BY MOUTH AT BEDTIME NEEDED docusate sodium [Colace] 100 mg capsule 100 mg PO BID Qty: 40 0RF hydrocodone-acetaminophen 5-325 mg tablet 1 tab PO Q6H MDD 4 PRN (Reason: pain (scale score 7-10)) Qty: 20 0RF Referrals: No Primary/Family,Physician [Primary Care Provider] - In 1 week Problem List Clinical Impression: Chronic pain Patient/Caregiver Discharge Instructions Education Materials: ED Chronic Pain Additional Instructions: - Follow-up as planned with your primary doctor and general surgeon. - Return to the emergency room at anytime for any worsening or emergent changes. Print Language: Macanese Stand Alone Forms: [facility] Award Info., Patient Portal Info Letter
== END 2025-01-12 20:33 | disposition home or self-care (01) ==
PROVIDERS: Emergency Medicine; Emergency Provider Emergency Medicine
DX: G89.29 Other chronic pain (principal); R07.9 Chest pain, unspecified; R10.9 Unspecified abdominal pain; M54.9 Dorsalgia, unspecified; I10 Essential (primary) hypertension; Z90.49 Acquired absence of other specified parts of digestive tract; R74.8 Abnormal levels of other serum enzymes; K44.9 Diaphragmatic hernia without obstruction or gangrene; R00.0 Tachycardia, unspecified
CPT/HCPCS: 36415; 74177; 80053; 81001; 83690; 84484; 85025; 85610; 93005; 99283; A4649; Q0162; Q9967; A9270

== ENCOUNTER 2025-01-17 10:35 | Day surgery (SDC) | payer MEDICAID, SELFPAY ==
[2025-01-15 08:32] VITALS: BMI 22.3
[2025-01-17] VITALS (9 sets, daily range): BP systolic 140–184; BP diastolic 80–101; PULSE 49–72; RESP 12–22; TEMP 36.1–36.8; O2SAT 97–100; BMI 21.6
[2025-01-17] MEDS: RINGERS LACTATED 1000 ML 1,000 ML 20 ML IV (11:31)
--- NOTE | 2025-01-17 13:12 | ESOP_ITS ---
Date of Procedure 01/17/25 Pre Op Diagnosis Right inguinal hernia Post Op Diagnosis Direct right inguinal hernia Procedure Right inguinal hernia repair with mesh Findings Patient was noted to have direct right inguinal hernia and small lipoma of the spermatic cord Procedure Description Patient brought into the operating room in supine position. After administration of general endotracheal anesthesia, patient's right groin was shaved, prepped and draped in standard surgical manner. The right inguinal crease was anesthetized with half percent Marcaine. An approximately 5 cm incision was made and dissection was carried to subcutaneous tissue. The Sal's fascia was divided and the external oblique aponeurosis was opened towards the external ring. The hernia sac and the spermatic cord structures were from the posterior aspect of the external oblique aponeurosis at the level of pubic tubercle. The hernia sac was then meticulously dissected off the spermatic cord structures at the level of internal ring. Patient was found to have direct right inguinal hernia defect. The defect was closed primarily with interrupted [id number] sutures using 0 Vicryl. Patient was also noted to have small lipoma of the spermatic cord that was excised and the level of internal ring. The floor of inguinal canal was then reconstructed with ultra Pro proceed mesh. The mesh was secured with running 2-0 Prolene suture. The mesh secured medially to the pubic tubercle, superiorly into the conjoin tendon, inferiorly and to the shelving edge of inguinal ligament, the mesh was placed around the cord structures and tacked under the external oblique aponeurosis laterally. The area was copiously and thoroughly washed and ir rigated, all the fluids were suctioned and the suction fluid returned clear. Hemostasis was adequate and satisfactory. External oblique aponeurosis was closed with running 2-0 Vicryl suture, and Sal's fascia was closed with interrupted suture using 3-0 Vicryl. The incision was closed with 4-0 Monocryl in subcutaneous fashion. Instruments, needles and sponge counts were reported to be correct ?2. Patient tolerated the procedure well. He was extubated, breathing spontaneously and without difficulty and was transferred to postanesthesia care in stable condition. Anesthesia GETA and local Pathology / specimen Other (Lipoma of the spermatic cord) Estimated Blood Loss 5 Condition Stable Disposition PACU Surgeon Mariah Rivas MD Surgical Staff Operation Date: 01/17/25 13:30 Case Staff Anesthesiologist: Indra Koch manager statistical: Agnes Ramesh
--- NOTE | 2025-01-17 13:56 | SUR.PHASEII ---
1345: Assumed care. Pt sitting up tolerating fluids and jello with no difficulty swallowing and no n/v. Surgical site right groin dressing dry, clean, intact. Anesthesia medicated for elevated BP 172/101. Pt denies headache, SOB, chest pain. 1355: BP coming down at 147/96. Anesthesia in at bedside to assess. No new recommendations,
--- NOTE | 2025-01-17 14:56 | SUR.PHASEII ---
1415: BP remained down and steady. Other VS stable. Dressing has remained dry, clean, intact. Pt stated pain level very tolerable and only has pain with movement. 1422: Pt stated he needed to use restroom and wanted to get dressed in restroom. Pt assisted to restroom. Ambulations steady. 1445: Pt out of restroom. Abdominal binder placed to cover surgery site. Assisted to transport chair. Pt and mother stated understanding of discharge instructions. 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 Pt discharged from [facility] in stable condition.
--- NOTE | 2025-01-19 15:58 | PD.ANESPROG ---
Documentation for date of: 01/19/25 POST ANESTHESIA NOTE: Patient had GETA for R inguinal hernia repair on 01/17/25. I just called and spoke with him on the phone and he denied any problems from anesthesia and said It worked out good, the anesthesia. Indra Koch MD Anesthesia Progress Note Progress Note Most recent Vital Signs: Last Vital Signs Temp 97.8 F 01/17/25 14:15 Pulse 62 01/17/25 14:15 Resp 17 01/17/25 14:15 BP 152/86 H 01/17/25 14:15 Pulse Ox 98 01/17/25 14:15 O2 Flow Rate 5 01/17/25 13:20
== END 2025-01-17 14:45 | disposition home or self-care (01) ==
PROVIDERS: PCP Family Medicine; Referring Provider Surgery; Visit Provider Surgery
PROC: (CPT 49505; principal; 2025-01-17 13:15)
DX: K40.90 Unilateral inguinal hernia, without obstruction or gangrene, not specified as recurrent (principal); D17.6 Benign lipomatous neoplasm of spermatic cord
CPT/HCPCS: 49505; 55520; A4217; A4649; C1781; J0360; J0690; J1100; J2704; J2710; J2765; J3010; J3490; J7120; J1596; J1805

== ENCOUNTER 2025-02-03 19:49 | Emergency (ER) | payer MEDICAID, SELFPAY ==
[2025-02-03 19:50] VITALS: BMI 21.9
[2025-02-03 19:51] VITALS: BP 159/86; PULSE 102; RESP 18; TEMP 36.9; O2SAT 96
[2025-02-03 19:54] VITALS: PULSE 78; RESP 18; O2SAT 95
--- NOTE | 2025-02-03 20:22 | XR_ITS ---
Examination: CT abdomen and pelvis without contrast. Coronal 3-D reconstructions. Sagittal 2-D reconstructions. Date and time of exam:February 03, 20252033 hrs., Comparison January 12, 2025 Indications: Hernia repair surgery 2 months ago with abdominal pain 2 weeks CTDI: vol (mGy): 5.10 DLP: (mGycm): 270 Technique: Axial images of the abdomen have been obtained, 3 mm slice thickness Intravenous contrast material has not been administered. Low dose protocols were performed. One or more of the following dose reduction techniques were used; automated exposure control, adjustment of the mA and/or KV according to patient size, use of iterative reconstruction technique. Findings: Large retrocardiac gastric hernia Liver mildly irregular in contour with fatty infiltration Absent gallbladder Spleen not enlarged common bile duct measures 9 mm Pancreatic duct is mildly dilated 4 mm No pancreatic mass No renal or ureteral calculi, no hydronephrosis. Aortic calcification no aneurysmal dilatation. Normal appendix 10 mm fat-containing umbilical hernia No bowel obstruction Colonic diverticulosis, no diverticulitis Urinary bladder intact No significant prostatomegaly Likely postoperative change in the right inguinal region but recommend testicular sonography follow-up Impression: Large retrocardiac gastric hernia Suspect primary hepatocellular disease Mildly enlarged common bile duct, recommend repeat hepatobiliary sonography No renal or ureteral calculi 10 mm fat-containing umbilical hernia Likely postoperative change in the right inguinal region, but recommend testicular sonography follow-up
--- NOTE | 2025-02-03 20:26 | PD.EDRME ---
Rapid Medical Screening Exam RME Arrival date/time: 02/03/25 19:49 This is a case of 54-year-old male status post inguinal hernia surgery came in in the emergency room due to generalized abdominal pain nausea vomiting for 2 weeks worsening of the symptoms this patient decided to start consult here in the emergency room Chief Complaint: Abdominal Pain Time Seen by Provider: 02/03/25 20:09 Vital signs: Vital Signs Temperature 98.4 F 02/03/25 19:51 Pulse Rate 102 H 02/03/25 19:51 Respiratory Rate 18 02/03/25 19:51 Blood Pressure 159/86 H 02/03/25 19:51 Pulse Oximetry (%) 96 02/03/25 19:51 Oxygen Delivery Method Room Air 02/03/25 19:51
[2025-02-03] MEDS: HYDROcodone/APAP 5/325 TABLET 1 TAB PO (21:04)
[2025-02-03 21:32] LABS: Collection Type, Urine Clean Catch
[2025-02-03 21:37] LABS: Basophils # (Auto) 0.1 Thou/mm3 (0.0-0.2); Basophils % (Auto) 1 % (0-2.5); Eosinophils # (Auto) 0.0 Thou/mm3 (0.0-0.5); Eosinophils % (Auto) 0 % (0-10); Hematocrit 39.8 % (41.0-53.0); Hemoglobin 13.6 g/dL (13.5-16.0); Immature Granulocytes Auto 0.01 Thou/mm3 (0.00-0.00); Lymphocytes # (Auto) 3.4 Thou/mm3 (1.0-4.8); Lymphocytes % (Auto) 55 % (10-50); Mean Corpuscular HGB Conc 34.2 g/dl (31.0-37.0); Mean Corpuscular Hemoglobin 30.5 pg (25.0-35.0); Mean Corpuscular Volume 89 fL (80-100); Monocytes # (Auto) 0.4 Thou/mm3 (0.0-0.8); Monocytes % (Auto) 6 % (0-12); Neutrophils # (Auto) 2.3 Thou/mm3 (1.8-7.7); Neutrophils % (Auto) 38 % (37-80); Nucleated Red Blood Cell # 0.00 Thou/mm3 (0.00-0.00); Nucleated Red Blood Cell % 0 /100 WBC (0); Platelet Count 208 Thou/mm3 (140-440); RDW Standard Deviation 43.8 fL (35.1-43.9); Red Blood Count 4.46 Miln/mm3 (4.50-5.90); White Blood Count 6.2 Thou/mm3 (3.8-10.6)
[2025-02-03 21:41] LABS: Bacteria,Urine Rare; Bilirubin,Urine Negative (Negative); Blood,Urine Negative (Negative); Clarity,Urine Clear (Clear/Hazy); Color,Urine Yellow (Lt Yel-Yel); Glucose, Urine 2+ (Negative); Ketones,Urine 1+ (Negative); Leukocyte Esterase,Urine Negative (Negative); Nitrite,Urine Negative (Negative); PH,Urine 6.0 (5.0-7.0); Protein,Urine Trace (Neg - Trace); RBC,Urine 4 /hpf (0-3); Specific Gravity,Urine 1.017 (1.001-1.035); Squamous Epithelial Cell,Urine < 1 /hpf (0-5); Urobilinogen,Urine 2.0 mg/dL (0.0-1.0); WBC,Urine 3 /hpf (0-5)
[2025-02-03 22:01] LABS: Alanine Aminotransferase 150 U/L (10-49); Albumin, Serum 4.5 gm/dL (3.5-5.0); Albumin/Globulin Ratio 1.7 (1.2-2.2); Alkaline Phosphatase 147 U/L (46-116); Amylase 74 U/L (30-118); Anion Gap 11 (7-16); Aspartate Amino Transferase 220 U/L (0-34); BUN/Creatinine Ratio 11 Ratio (12-20); Bilirubin,Total 1.0 mg/dL (0.3-1.2); Blood Urea Nitrogen 11 mg/dL (9-23); Calcium 9.2 mg/dL (8.3-10.6); Calcium (Corrected) 9.2 mg/dL (8.5-10.1); Carbon Dioxide 27.1 mMol/L (20.0-31.0); Chloride 109 mMol/L (98-107); Creatinine (Component) 1.0 mg/dL (0.6-1.3); Estimated Creatinine Clearance 67.7 mL/min (>60); Globulin 2.6 gm/dL (2.3-3.5); Glucose 89 mg/dL (74-106); Osmolality,Calculated 290 (275-295); Potassium 5.0 mMol/L (3.4-5.1); Sodium 147 mMol/L (136-145); Total Protein 7.1 gm/dL (5.7-8.2); eGFR > 60 See Note
[2025-02-03 22:06] VITALS: BP 151/83; PULSE 84; RESP 18; TEMP 36.9; O2SAT 96
--- NOTE | 2025-02-03 22:32 | EDNOTE_ITS ---
ED Abdominal Pain RME/HPI General Chief Complaint: Abdominal Pain Stated complaint: ABDOMINAL PAIN Time seen by provider: 02/03/25 20:09 Arrival date/time: 02/03/25 19:49 RME / HPI RME / HPI narrative: 02/03/25 19:49 This is a case of 54-year-old male status post inguinal hernia surgery came in in the emergency room due to generalized abdominal pain nausea vomiting for 2 weeks worsening of the symptoms this patient decided to start consult here in the emergency room --------- Dr. Ontiveros?s Main ED Evaluation: 54yo male s/p right hernia repair approx. 6 weeks [employer] with persistent diffuse lower abdominal pain for the last several weeks of increasing intensity, described as sharp and stabbing. No radiation to his back. He has dysuria without frequency or urgency, periods of diaphoresis, subjective fever and chills. PMH includes HTN. PSH recent right hernia repair, prior cerebral aneurysm clipping. Allergy to Motrin (GI sensitivity). Related Data Home Medications ?Medication ?Instructions ?Recorded ?Confirmed atenolol 50 mg tablet 50 mg PO QDAY 09/14/1801/15 hydroxyzine HCl 25 mg tablet 25 mg PO DAILY PRN imsomn ia 09/22/24 01/15/25 Previous Rx's ?Medication ?Instructions ?Recorded docusate sodium 100 mg capsule 100 mg PO BID #40 caps 01/17/25 (Colace) hydrocodone 5 mg-acetaminophen 325 1 tab PO Q6H PRN pa in (scale score 01/17/25 mg tablet 7-10) #20 tabs hydrocodone 5 mg-acetaminophen 325 1 tab PO Q8H PRN pa in #20 tabs 02/04/25 mg tablet hyoscyamine sulfate 0.125 mg 0.125 mg PO TID PRN cram ping #10 02/04/25 tablet (Levsin) tabs promethazine 12.5 mg tablet 12.5 mg PO TID PRN nausea and 02/04/25 vomiting #14 tabs Allergies Allergy/AdvReac Type Severity Reaction Status Date / Time ibuprofen AdvReac Severe abd pain Verified 02/03/25 19:53 Review of Systems Review of Systems Systems Reviewed: All systems reviewed, normal except as documented Past Medical History Past Medical History NEUROLOGIC: Positive Neurological Disorders; Negative Seizures CARDIAC: Positive Cardiac Disorders, Aneurysm (Left side of brain, had clip placement in [place] 30 yrs ago) and Hypertension; Negative Congestive Heart Failure RESPIRATORY: Negative Chronic Obstructive Pulmonary Disease (COPD) or Asthma GASTROINTESTINAL: Positive Gastrointestinal Disorders, Hepatitis (C), Cirrhosis, Pancreatitis and Hiatal Hernia; Negative Gall Bladder Disease GENITOURINARY: Positive Benign Prostatic Hyperplasia; Negative Genitourinary Disorders or Renal Disease MUSCULOSKELETAL: Negative Musculoskeletal Disorders ENDOCRINE: Negative Endocrine Disorders, Diabetes Mellitus Type 1 or Diabetes Mellitus Type 2 HEMATOLOGIC: Negative Blood Disorders or Sickle Cell Disease PSYCHO/SOCIAL: Positive Recreational Drug Use and Anxiety OTHER HISTORY: Positive Hospitalization (aneurysm), Chicken Pox and Measles; Negative Autoimmune Disease, Shingles, Falls, Blood Transfusions, Blood Transfusion Reaction, Anesthesia Reactions, Organ Transplant, MRSA, Clostridium Difficile or Cancer Family History FAMILY HISTORY: Positive Family Cardiac Disorders, Family Cancer and Family Surgery; Negative Family Psychiatric Problems, Family Respiratory Disorders, Family Gastrointestinal Problems or Family Anesthesia Reaction Surgical History SURGICAL: Positive Cardiac Surgery, Vascular Surgery (Left brain aneurysm has a clip), Abdominal Surgery and Open Reduction Internal Fixation (Left ankle); Negative Endocrine Surgery, Ear Surgery, Throat Surgery, Nephrectomy, Joint Replacement, Neurologic Surgery, Mastectomy, Vasectomy or Organ Transplant Social History SMOKING STATUS: Current some day smoker SUBSTANCE USE: marijuana ED Exam Narrative Physical exam: GENERAL APPEARANCE: alert and oriented x 4, apprehensive, complains of RLQ/diffuse right lower abdominal pain, well-developed, well-nourished, no acute distress VITALS: All vitals were reviewed and the pulse ox is 96% on room air, which is normal according to my interpretation. HEENT: Normocephalic, atraumatic; pupils equal, round, reactive to light; EOMI; mucous membranes pink, moist; oropharynx clear NECK: Supple LUNGS: CTABL; no wheezes, no rales, no rhonchi HEART: Regular rate, regular rhythm; normal S1, S2; no murmurs ABDOMEN: non distended; soft, diffuse tenderness extending from the right to left lower quadrants with slight guarding, no rebound; no masses, no organomegaly, no hernia BACK: no CVA tenderness EXTREMITIES: atraumatic; no edema NEUROLOGIC: awake; alert and oriented x4; cranial nerves II-XII grossly intact; no focal sensory or motor deficits PSYCHIATRIC: appropriate mood and affect SKIN: warm, dry, normal color; no rashes Course Quality Measures none Orders Category Date Time Status CT abdomen pelvis wo con Stat Exams 02/03/25 20:22 Completed US gall bladder Stat Exams 02/04/25 00:43 Taken US scrotum Stat Exams 02/04/25 00:42 Taken Amylase Stat Lab 02/03/25 20:55 Completed CBC Stat Lab 02/03/25 20:55 Completed Comprehensive Metabolic Panel Stat Lab 02/03/25 20:55 Completed Urinalysis Stat Lab 02/03/25 21:25 Completed HYDROcodone*/APAP 5/325 [[place] 5/325] Med 02/03/25 20:49 Discontinued 1 tab PO X1 ONE Morphine* Inj Med 02/03/25 22:41 Discontinued 4 mg IVP X1 ONE Prochlorperazine Inj [Compazine Inj] Med 02/03/25 22:41 Discontinued 5 mg IM X1 ONE Sodium Chloride 0.9% 1000 ml [Ns] 1,000 ml Med 02/03/25 22:42 Discontinued IV 999 mls/hr Vital Signs Vital signs: Vital Signs Temperature 98.4 F 02/03/25 19:51 Pulse Rate 102 H 02/03/25 19:51 Respiratory Rate 18 02/03/25 19:51 Blood Pressure 159/86 H 02/03/25 19:51 Pulse Oximetry (%) 96 02/03/25 19:51 Oxygen Delivery Method Room Air 02/03/25 19:51 Abdominal Pain MDM MDM Narrative MDM Narrative:: Scribe Attestation: 02/03/25 Vianney Higuera am scribing for and in the presence of Dr. Ontiveros. 54yo male s/p right hernia repair approx. 6 weeks [employer] with persistent diffuse lower abdominal pain for the last several weeks of increasing intensity, described as sharp and stabbing. No radiation to his back. Please see PE findings. Lab markers demonstrate marginally elevated transaminases, although total bilirubin is normal. Patient resting comfortably throughout majority of the ED course, but when aroused, he repeatedly asks for narcotic analgesics. Scrotal ultrasound unremarkable. CT abdomen pelvis fails to demonstrate evidence of intraabdominal inflammatory condition, there appears to be enlarged CBD, therefore repeat US performed, which confirmed dilated CBD. In the absence of obstructive enzymatic pattern, will defer on MRCP emergently. Will discharge the patient home on an antiemetic, recommend low fat diet, low dose narcotic analgesic, and following-up with ED Wednesday AM for consideration of MRCP. Precaution instructions issued. Patient data External records reviewed:: [facility] previous records (Per chart review, patient was seen here on 01/12/25 for chronic pain.) Clinical information provided by:: patient Social determinants that could affect healthcare access:: none Patient has the following chronic illnesses:: HTN How is presenting disease/condition affected by chronic disease/condition?: uneffected by Evaluation data The following diagnostics were reviewed and interpreted by me:: lab results and radiology exam(s) Lab and/or radiology exams considered but not ordered:: none Interpretation Summary: [place] [facility] Report Signed Patient: GREGG PINON [facility] Record#: [id number] Birthdate: 1970 Age/Sex: 54 / M Location: [facility] Attending Dr: Ordering Physician: Randi Booker Date of Service: 02/03/25 Procedure(s): CT abdomen pelvis wo con Accession Number(s): [id number] cc: Julien Romo MD; Randi Booker~ Examination: CT abdomen and pelvis without contrast. Coronal 3-D reconstructions. Sagittal 2-D reconstructions. Date and time of exam:February 03, 20252033 hrs., Comparison January 12, 2025 Indications: Hernia repair surgery 2 months ago with abdominal pain 2 weeks CTDI: vol (mGy): 5.10 DLP: (mGycm): 270 Technique: Axial images of the abdomen have been obtained, 3 mm slice thickness Intravenous contrast material has not been administered. Low dose protocols were performed. One or more of the following dose reduction techniques were used; automated exposure control, adjustment of the mA and/or KV according to patient size, use of iterative reconstruction technique. Findings: Large retrocardiac gastric hernia Liver mildly irregular in contour with fatty infiltration Absent gallbladder Spleen not enlarged common bile duct measures 9 mm Pancreatic duct is mildly dilated 4 mm No pancreatic mass No renal or ureteral calculi, no hydronephrosis. Aortic calcification no aneurysmal dilatation. Normal appendix 10 mm fat-containing umbilical hernia No bowel obstruction Colonic diverticulosis, no diverticulitis Urinary bladder intact No significant prostatomegaly Likely postoperative change in the right inguinal region but recommend testicular sonography follow-up Impression: Large retrocardiac gastric hernia Suspect primary hepatocellular disease Mildly enlarged common bile duct, recommend repeat hepatobiliary sonography No renal or ureteral calculi 10 mm fat-containing umbilical hernia Likely postoperative change in the right inguinal region, but recommend testicular sonography follow-up Dictated By: Julien Romo MD Signed By: <Electronically signed by Julien Romo MD in OV> 02/03/252056 [facility] Preliminary Report Draft Patient: GREGG PINON [facility]. Record#: [id number] Birthdate: 1970 Age/Sex: 54 / M Location: [facility] Attending Dr: Ordering Physician: Date of Service: Procedure(s): Accession Number(s): cc: ~ Ultrasound of the scrotum with Doppler and wave Doppler spectral analysis. February 04, 2025 at 0141 hours Clinical history: R/o epididymitis. Comparison: None available at the time of this report. Technique: Real-time ultrasound was performed using Duplex scanning including arterial inflow, venous outflow, color and spectral Doppler analysis of both testes. Findings: Right: The right testicle measures 3.5 x 2.3 x 2.5 cm and demonstrates normal echogenicity and Doppler flow signal. The right epididymis measures 1.2 x 1.0 x 0.9 cm. There is a small hydrocele. Left: The left testicle measures 3.5 x 2.2 x 2.5 cm and demonstrates normal echogenicity and Doppler flow signal. The left epididymis measures 1.2 x 0.5 x 1.1 cm, too small simple cysts, the largest measuring 0.4 cm. There is a small hydrocele. Impression: No evidence of testicular torsion or epididymitis. Small bilateral hydrocele. Report Electronically Signed By: Terrell Metcalf 02/04/2025 3:32:02 AM [EST] [facility] Preliminary Report Draft Patient: GREGG PINON [facility] Record#: [id number] Birthdate: 1970 Age/Sex: 54 / M Location: [facility] Attending Dr: Ordering Physician: Date of Service: Procedure(s): Accession Number(s): cc: ~ Right upper quadrant abdominal ultrasound with Doppler and wave Doppler spectral analysis. February 04, 2025 0132 hours Clinical history: Enlarged CBD. Technique: Grayscale and color flow images of the right upper quadrant are provided. Hepatic and portal veins were also imaged with color flow images. Comparison: None available at the time of this report. Findings: The liver is normal in echogenicity. No intrahepatic biliary ductal dilatation. The gallbladder is not clearly visualized, surgically absent versus contracted. The common bile duct is dilated in caliber at 11.9 mm. The pancreas is unremarkable to the extent visualized. The imaged portions of the right kidney are within normal limits. The portal vein is patent with hepatopetal flow and normal wave Doppler spectral analysis. The IVC is patent with normal wave Doppler spectral analysis. Manning sign is not available at the time of this report. Impression: The gallbladder is not clearly visualized, surgically absent versus contracted. Dilated CBD, if choledocholithiasis is clinically suspected consider correlation with MRCP. Report Electronically Signed By: Terrell Metcalf 02/04/2025 4:05:28 AM [EST] Medications / Prescriptions Medications or Prescriptions considered but not ordered:: none Medication administrations:: Medication Administration History Discontinued Medications Hydrocodone Bitart/Acetaminophen (Hydrocodone/Apap 5/325 Tablet) 1 tab PO X1 ONE Stop: 02/03/25 20:50 Last Admin: 02/03/25 21:04 Dose: 1 tab Documented By: DALTON Sodium Chloride (Ns) 1,000 mls @ 999 mls/hr IV .Q1H1M ONE Stop: 02/03/25 23:42 Last Infusion: 02/04/25 02:04 Dose: Infused Documented By: Admin: 02/04/25 00:14 Dose: 999 mls/hr Documented By: ADRIEN Morphine Sulfate (Morphine Sulf Inj 4 Mg/Ml Vial) 4 mg IVP X1 ONE Stop: 02/03/25 22:42 Last Admin: 02/04/25 00:14 Dose: 4 mg Documented By: ADRIEN Prochlorperazine Edisylate (Prochlorperazine Inj 5 Mg/Ml Vial 2 Ml) 5 mg IM X1 ONE; Protocol Stop: 02/03/25 22:42 Last Admin: 02/04/25 00:13 Dose: 5 mg Documented By: ADRIEN see above Consultations Consultation(s) initiated? (list below): No Diagnosis Differential diagnosis abdominal pain: acute appendicitis, constipation, diverticulitis, pancreatitis, small bowel obstruction and other (postoperative pain, other intraabdominal infection) Most likely diagnosis given after review of the tests above:: see clinical impression below Admission Indicated Admission indicated?: not indicated Admission Request Was there a request for admission?: No Disposition Plan Disposition Plan: Discharge Discharge Attestation Discharge Attestation: The patient and all family members were given an opportunity to ask questions and understood the discharge instructions. Discharge instructions specifically effects, indications for sooner follow up or return to the emergency department, and the expected course of current diagnosis. Patient condition: Stable Discharge Plan Plan Patient Disposition: HOME (Self Care) Patient condition on transfer: Benefits outweigh risks Prescriptions/Referrals Prescriptions/Med Rec: New hydrocodone-acetaminophen 5-325 mg tablet 1 tab PO Q8H MDD 3 tab PRN (Reason: pain) Qty: 20 0RF hyoscyamine sulfate [Levsin] 0.125 mg tablet 0.125 mg PO TID PRN (Reason: cramping) Qty: 10 0RF promethazine 12.5 mg tablet 12.5 mg PO TID PRN (Reason: nausea and vomiting) Qty: 14 0RF No Action atenolol 50 mg Tablet 50 mg PO QDAY hydroxyzine HCl 25 mg tablet 25 mg PO DAILY PRN (Reason: imsomnia) Patient Comments: TAKE 1 TO 2 TABLETS BY MOUTH AT BEDTIME NEEDED docusate sodium [Colace] 100 mg capsule 100 mg PO BID Qty: 40 0RF hydrocodone-acetaminophen 5-325 mg tablet 1 tab PO Q6H MDD 4 PRN (Reason: pain (scale score 7-10)) Qty: 20 0RF Referrals: No Primary/Family,Physician [Primary Care Provider] - In 1 week Problem List Clinical Impression: Postoperative right lower quadrant abdominal pain, Hydrocele in adult Patient/Caregiver Discharge Instructions Discharge Activity: activity as tolerated Diet Instructions: low fat diet Education Materials: Managing Post-Op Pain at Home Additional Instructions: Low-fat diet. Medication as directed. Return on Wednesday a.m. for MRCP to further delineate dilated common bile duct. Return for fevers persistent vomiting or worsening illness. Print Language: German Stand Alone Forms: [facility] Award Info., Patient Portal Info Letter
[2025-02-04] MEDS: PROCHLORPERAZINE INJ 5 MG/ML VIAL 2 ML IM (00:13)
[2025-02-04] MEDS: SODIUM CHLORIDE 0.9% 1000 ML 1,000 ML 999 ML IV (00:14)
[2025-02-04] MEDS: MORPHINE SULF INJ 4 MG/ML VIAL IVP (00:14)
[2025-02-04 00:18] VITALS: BP 148/91; O2SAT 96
--- NOTE | 2025-02-04 00:42 | XR_ITS ---
Examination: Testicular sonography complete Technique: Grayscale sonographic images testes, assessment arterial inflow venous outflow Doppler spectral analysis carful analysis Date and time: February 04, 2025, 0141 hrs. Indications: Onset right testicular pain beginning one week ago. Findings: Right testis 3.5 cm epididymis 12 mm. Arterial flow testicle. No testicular mass Mild varicocele Left testis 3.5 cm Epididymis 12 mm. Right epididymal cyst, 4 mm, 4 mm Arterial flow testicle. No testicular mass Mild varicocele Minimal hydrocele Impression: No testicular torsion or testicular mass Small benign left epididymal cysts Mild bilateral varicoceles
--- NOTE | 2025-02-04 00:43 | XR_ITS ---
Examination: Abdomen sonogram, Limited Date and time of exam: February 04, 2025, 0132 hrs. Indications: Enlarged common bile duct on CT abdomen pelvis 02/03/2025 Technique: Real-time crareon scale transabdominal sonographic images of the upper abdomen obtained. Findings: Absent gallbladder Common bile duct is enlarged 12 mm no definite stones Pancreas obscured by bowel gas. Liver 14.3 cm fatty infiltration Normal hepatopedal portal venous flow. Patent IVC Impression: Enlarged common bile duct 12 mm, no definite common bile duct stones, if biliary colic is a clinical consideration, suggest MRCP follow-up, as clinically warranted
[2025-02-04 01:00] VITALS: BP 135/85; PULSE 73; RESP 18; O2SAT 96
[2025-02-04 02:00] VITALS: BP 134/91; PULSE 75; RESP 18; O2SAT 97
[2025-02-04 03:00] VITALS: BP 124/74; PULSE 78; RESP 18; O2SAT 95
--- NOTE | 2025-02-04 03:32 | PRELIM_ITS ---
Ultrasound of the scrotum with Doppler and wave Doppler spectral analysis. February 04, 2025 at 0141 hours Clinical history: R/o epididymitis. Comparison: None available at the time of this report. Technique: Real-time ultrasound was performed using Duplex scanning including arterial inflow, venous outflow, color and spectral Doppler analysis of both testes. Findings: Right: The right testicle measures 3.5 x 2.3 x 2.5 cm and demonstrates normal echogenicity and Doppler flow signal. The right epididymis measures 1.2 x 1.0 x 0.9 cm. There is a small hydrocele. Left: The left testicle measures 3.5 x 2.2 x 2.5 cm and demonstrates normal echogenicity and Doppler flow signal. The left epididymis measures 1.2 x 0.5 x 1.1 cm, too small simple cysts, the largest measuring 0.4 cm. There is a small hydrocele. Impression: No evidence of testicular torsion or epididymitis. Small bilateral hydrocele. Report Electronically Signed By: Terrell Metcalf 02/04/2025 3:32:02 AM [EST]
[2025-02-04 04:00] VITALS: BP 132/70; PULSE 80; RESP 18; O2SAT 94
--- NOTE | 2025-02-04 04:06 | PRELIM_ITS ---
Right upper quadrant abdominal ultrasound with Doppler and wave Doppler spectral analysis. February 04, 2025 0132 hours Clinical history: Enlarged CBD. Technique: Grayscale and color flow images of the right upper quadrant are provided. Hepatic and portal veins were also imaged with color flow images. Comparison: None available at the time of this report. Findings: The liver is normal in echogenicity. No intrahepatic biliary ductal dilatation. The gallbladder is not clearly visualized, surgically absent versus contracted. The common bile duct is dilated in caliber at 11.9 mm. The pancreas is unremarkable to the extent visualized. The imaged portions of the right kidney are within normal limits. The portal vein is patent with hepatopetal flow and normal wave Doppler spectral analysis. The IVC is patent with normal wave Doppler spectral analysis. Manning sign is not available at the time of this report. Impression: The gallbladder is not clearly visualized, surgically absent versus contracted. Dilated CBD, if choledocholithiasis is clinically suspected consider correlation with MRCP. Report Electronically Signed By: Terrell Metcalf 02/04/2025 4:05:28 AM [EST]
[2025-02-04 05:00] VITALS: BP 121/77; PULSE 74; RESP 18; O2SAT 95
== END 2025-02-04 05:48 | disposition home or self-care (01) ==
PROVIDERS: Nurse Practitioner Family; Emergency Provider Emergency Medicine
DX: G89.18 Other acute postprocedural pain (principal); N43.3 Hydrocele, unspecified; K42.9 Umbilical hernia without obstruction or gangrene; I10 Essential (primary) hypertension
CPT/HCPCS: 36415; 74176; 76705; 76870; 80053; 81001; 82150; 85025; 96361; 96372; 96374; 99283; J0780; J2270; J7030; A9270

== ENCOUNTER 2025-03-19 03:00 | Emergency (ER) | payer MEDICAID, SELFPAY ==
[2025-03-19 03:02] VITALS: BMI 24.0
[2025-03-19 03:07] VITALS: BP 131/88; PULSE 100; RESP 18; TEMP 36.9; O2SAT 96
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
--- NOTE | 2025-03-19 04:49 | PRELIM_ITS ---
CT scan of the lumbar spine without intravenous contrast (axial sections with sagittal and coronal reformats). March 19, 2025 0416 hours Clinical History: fall Comparison: None Findings: There is no fracture, traumatic subluxation or other acute osseous abnormality of the lumbar spine. There are multilevel degenerative disc changes and spondylosis of the lumbar spine. There is mild degenerative retrolisthesis of L3 on L4 and L5 on S1 and there is mild degenerative anterolisthesis of L4 and L5. There is mild L3-L4, mild L4-5 and moderate to advanced L5-S1 disc space narrowing. There is mild to moderate foraminal stenosis at the L3-L4, L4-5 and L5-S1 levels. There is interspinous degenerative change within the lumbar spine. There is mild spinal canal stenosis at L4-5. There is a small hiatus hernia. Visualized lung bases are clear. The paraspinous soft tissues are unremarkable. Splenic calcifications noted in keeping with old healed granulomatous disease. Impression: No acute osseous abnormality of the lumbar spine. Degenerative change with multilevel foraminal stenosis. There is mild spinal canal stenosis at L4-5. Report Electronically Signed By: Gucci Nunes 03/19/2025 4:49:24 AM [EST]
[2025-03-19] MEDS: HYDROcodone/APAP 5/325 TABLET 1 TAB PO (04:53)
--- NOTE | 2025-03-19 05:14 | PC.NURSE ---
DAVIAN DE LEÓN HERE TO SPEAK WITH PATIENT.
--- NOTE | 2025-03-19 05:19 | PRELIM_ITS ---
CT scan of the pelvis without intravenous contrast. Axial sections with sagittal and coronal reformats were obtained March 19, 2025 0416 hours Clinical History: Injury. Reference is made to the prior CT and ultrasound reports dated 06/17/2024 and 02/04/2025, respectively (no prior images are available at the moment of interpreting) Findings: There is no fracture or malalignment. There is mild osteoarthritis of the hips. No joint effusion is seen. The visualized pelvic viscera and soft tissues are unremarkable except for nonspecific prostatic calcifications. There is degenerative change in the visualized lower lumbar spine. Impression: No fracture or dislocation. Report Electronically Signed By: Gucci Nunes 03/19/2025 5:17:18 AM [EST]
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
== END 2025-03-19 06:25 | disposition home or self-care (01) ==
PROVIDERS: Emergency Provider Emergency Medicine
DX: S70.02XA Contusion of left hip, initial encounter (principal); W18.30XA Fall on same level, unspecified, initial encounter
CPT/HCPCS: 72131; 72192; 73552; 99283; A9270